=== PATIENT | male | born 1945 | race Caucasian/White ===

== ENCOUNTER 2020-12-13 09:47 | Outpatient (REF) | payer MEDICARE, SELFPAY ==
[2020-12-13 12:50] LABS: Alanine Aminotransferase 20 U/L (0-40); Anion Gap 13 (12-20); Aspartate Amino Transferase 20 U/L (5-37); Blood Urea Nitrogen 20 mg/dL (9-16); Calcium 9.2 mg/dL (8.4-10.2); Carbon Dioxide 23 mmol/L (22-29); Chloride 106 mmol/L (96-108); Cholesterol 179 mg/dL; Estimated Glomerular Filt Rate > 60; Glucose Fasting 96 mg/dL (60-99); HDL Cholesterol 51 mg/dL; LDL Cholesterol Calculated 109 mg/dl; Potassium 4.3 mmol/L (3.3-5.1); Sodium 138 mmol/L (135-145); Triglycerides 98 mg/dL
[2020-12-13 14:01] LABS: PSA,Total (Free>4and<10) 1.44 ng/mL (0.00-4.00)
== END 2020-12-13 09:48 | disposition home or self-care (01) ==
LOC: HO.HMGCLDS 09:47
PROVIDERS: PCP Internal Medicine; Visit Provider Internal Medicine
DX: Z00.00 Encounter for general adult medical examination without abnormal findings (principal); Z12.5 Encounter for screening for malignant neoplasm of prostate; I10 Essential (primary) hypertension
CPT/HCPCS: 36415; 80048; 80061; 84153; 84450; 84460

== ENCOUNTER 2021-04-03 11:22 | Outpatient (REF) | payer MEDICARE, SELFPAY ==
--- NOTE | ~2021-04-03 | XR_ITS ---
EXAMINATION: XR HAND, RIGHT CLINICAL INFORMATION: Synovitis and tenosynovitis COMPARISON: None TECHNIQUE: PA, lateral, and oblique views of the right hand. FINDINGS: Bone alignment is normal. No acute fracture or dislocation is seen. There is arthritis at the IP joints, radiocarpal and distal radial ulnar joints. There is a soft tissue calcification adjacent to the radial or lateral aspect of the fifth MCP joint and dorsal DIP joint of the third finger. Soft tissues are otherwise unremarkable. XR/XR hand RT min 3V IMPRESSION: Degenerative changes at the IP joint and wrist..
== END 2021-04-03 11:23 | disposition home or self-care (01) ==
LOC: HO.HMGCX 11:22
PROVIDERS: PCP Internal Medicine; Visit Provider Physician Assistant
DX: M65.9 Synovitis and tenosynovitis, unspecified (principal)
CPT/HCPCS: 73130

== ENCOUNTER → 2021-05-02 10:06 | Outpatient (BNVA) | payer MEDICARE, SELFPAY | PROVIDERS: PCP Internal Medicine; Visit Provider Orthopaedic Surgery | DX: M72.0 Palmar fascial fibromatosis [Dupuytren] (principal); M77.8 Other enthesopathies, not elsewhere classified; M25.641 Stiffness of right hand, not elsewhere classified | CPT/HCPCS: 99202 ==

== ENCOUNTER 2021-12-14 10:27 | Outpatient (REF) | payer MEDICARE, SELFPAY ==
--- NOTE | ~2021-12-14 | XR_ITS ---
EXAMINATION: XR KNEE AP STANDING CLINICAL INFORMATION: Right knee pain. COMPARISON: None TECHNIQUE: AP bilateral standing knees with bilateral lateral views which are weightbearing. FINDINGS: AP and lateral views of the right knee do not demonstrate any evidence of acute fracture or dislocation. Joint spaces appear to be maintained. No effusion is appreciated. There is degenerative change at the patellofemoral joint with patella spurring. There is mild marginal spurring involving the medial joint space compartment. AP and lateral views of the left knee demonstrates mild marginal spurring about the medial joint space. There is patellofemoral degenerative change with marginal spurring. There is a left knee effusion. XR/XR knee standing BI IMPRESSION: 1. Bilateral patellofemoral joint degenerative change. 2. Left knee effusion.
== END 2021-12-14 10:28 | disposition home or self-care (01) ==
LOC: HO.HMGCX 10:27
PROVIDERS: PCP Internal Medicine; Visit Provider Internal Medicine
DX: M25.561 Pain in right knee (principal); M25.562 Pain in left knee
CPT/HCPCS: 73565

== ENCOUNTER 2021-12-15 06:29 | Outpatient (REF) | payer MEDICARE, SELFPAY ==
[2021-12-15 12:18] LABS: Alanine Aminotransferase 21 U/L (0-40); Anion Gap 14 (12-20); Aspartate Amino Transferase 20 U/L (5-37); Blood Urea Nitrogen 22 mg/dL (9-16); Calcium 8.7 mg/dL (8.4-10.2); Carbon Dioxide 25 mmol/L (22-29); Chloride 106 mmol/L (96-108); Cholesterol 172 mg/dL; Estimated Glomerular Filt Rate > 60; Glucose Fasting 100 mg/dL (60-99); HDL Cholesterol 50 mg/dL; LDL Cholesterol Calculated 103 mg/dl; PSA,Total (Free>4and<10) 1.44 ng/mL (0.00-4.00); Potassium 4.3 mmol/L (3.3-5.1); Sodium 141 mmol/L (135-145); Triglycerides 97 mg/dL
== END 2021-12-15 06:30 | disposition home or self-care (01) ==
LOC: HO.HMGCLDS 06:29
PROVIDERS: PCP Internal Medicine; Visit Provider Internal Medicine
DX: Z00.01 Encounter for general adult medical examination with abnormal findings (principal); Z12.5 Encounter for screening for malignant neoplasm of prostate; R97.20 Elevated prostate specific antigen [PSA]
CPT/HCPCS: 36415; 80048; 80061; 84153; 84450; 84460

== ENCOUNTER 2022-01-12 08:21 | Outpatient (REF) | payer MEDICARE, SELFPAY ==
--- NOTE | ~2022-01-12 | XR_ITS ---
EXAMINATION: XR BILATERAL KNEE CLINICAL INFORMATION: Pain COMPARISON: None TECHNIQUE: New Point view of each knee. FINDINGS: RIGHT KNEE: There is moderate loss of patellofemoral compartment joint space with lateral patellar spurring. No bony erosive changes or loose body seen. LEFT KNEE: The patellofemoral compartment joint space is maintained with small periarticular spurring along the lateral patella. No bony erosive changes or loose body seen. XR/XR knee LT 1V IMPRESSION: 1. Moderate patellofemoral compartment arthritic changes with moderate lateral patellar spurring right knee. 2. Minimal lateral spurring of the patella left knee with no loss of joint space or erosive changes.
--- NOTE | ~2022-01-12 | XR_ITS ---
EXAMINATION: XR BILATERAL KNEE CLINICAL INFORMATION: Pain COMPARISON: None TECHNIQUE: Gowrie view of each knee. FINDINGS: RIGHT KNEE: There is moderate loss of patellofemoral compartment joint space with lateral patellar spurring. No bony erosive changes or loose body seen. LEFT KNEE: The patellofemoral compartment joint space is maintained with small periarticular spurring along the lateral patella. No bony erosive changes or loose body seen. XR/XR knee RT 1V IMPRESSION: 1. Moderate patellofemoral compartment arthritic changes with moderate lateral patellar spurring right knee. 2. Minimal lateral spurring of the patella left knee with no loss of joint space or erosive changes.
== END 2022-01-12 08:22 | disposition home or self-care (01) ==
LOC: HO.HOSX 08:21
PROVIDERS: Visit Provider Physician Assistant
DX: M22.2X1 Patellofemoral disorders, right knee (principal); M22.2X2 Patellofemoral disorders, left knee
CPT/HCPCS: 20610; 73560; 99212; J1020

== ENCOUNTER 2022-02-16 08:30 | Outpatient (RCR) | payer MEDICARE, SELFPAY | END 2022-03-21 15:42 | disposition home or self-care (01) | LOC: HO.OT 08:30 | PROVIDERS: PCP Internal Medicine; Visit Provider Internal Medicine | DX: M25.641 Stiffness of right hand, not elsewhere classified (principal) | CPT/HCPCS: 97035; 97110; 97140; 97166; 97530 ==

== ENCOUNTER → 2022-04-18 08:02 | Outpatient (BNVA) | payer MEDICARE, SELFPAY | PROVIDERS: PCP Internal Medicine; Visit Provider Physician Assistant | DX: M17.10 Unilateral primary osteoarthritis, unspecified knee (principal) | CPT/HCPCS: 99212 ==

== ENCOUNTER 2023-08-29 14:01 | Outpatient (AMB) | payer MEDICARE, SELFPAY ==
--- NOTE | 2023-08-29 14:20 | A.OFFPC_ITS ---
Vital Signs 08/29/23 14:30 Height 5 ft 5 in Weight 196 lb BMI 32.6 BP 130/72 Blood Pressure Location Rt brachial Position Sitting Pulse 64 Pulse Source Pulse Oximeter Pulse Oximetry (%) 96 Oxygen Delivery Method Room Air Intake Visit Reasons: PE Intake Note: Pt is here today for his PE: Last colonoscopy 10 yrs ago [facility] Allergies tomatoes Allergy (Unknown, Uncoded 08/29/23 15:06) stomach upset caffeine Adverse Reaction (Unknown, Uncoded 08/29/23 15:06) joint pain pineapple Adverse Reaction (Unknown, Uncoded 08/29/23 15:06) rash Medication List - Last Reconciled 08/29/23 by Rosy Ulloa MD multivitamin 1 tab PO DAILY Tobacco use date assessed: 12/14/21 Fall risk assessment: 2 + Falls in past year Last assessed Fall Risk: 08/29/23 Dental Screening Dental Screen Date: 08/29/23 Did you have a dental visit in the last 12 months?: Yes Did you have a dental problem in the last 6 months where you did not have access to dental care?: Yes Was dental information given to patient?: Patient has dentist HPI PE HPI Details 77-year-old male here today for physical exam. Currently not taking any medications at present except for multivitamins. Has had a colonoscopy more than 10 years ago at [facility],, does not want to get further screenings. Has had COVID vaccines in the past but no updated booster shot. Up-to-date with his yearly flu shots, pneumonia vaccine, Shingrix vaccine Is also complaining here today of pain on anterior aspect of right shoulder joint which has been present now for the last several weeks no history of trauma, no heavy lifting. Has been taking [id number] Tylenol which affords only temporary relief, requesting referral back to see [facility] for further evaluation management, declines physical therapy. COUNTS INCLUDE 234 BEDS AT THE [facility] Medical History (Updated 08/29/23 @ 15:26 by Rosy Ulloa MD) Dupuytren's contracture of right hand Right shoulder pain Annual visit for general adult medical examination with abnormal findings Patellofemoral arthralgia of both knees Osteoarthritis, knee Hx of hiatal hernia Surgical History (Updated 08/29/23 @ 15:16 by Rosy Ulloa MD) History of rotator cuff surgery Hx of cataract surgery H/O knee surgery Family History Brother Mental health disorder Social History Housing: House Patient Tobacco Use Status: Never used Tobacco e-Cigarette/Vaping Use: Never Used Second Hand Smoke Exposure: No service: No Current occupational status: retired Cognitive needs: No Hearing needs: No Vision needs: Yes Questionnaire PHQ-9 Over the last 2 weeks, how often have you been bothered by any of the following problems? 1. Little interest or pleasure in doing things: not at all 2. Feeling down, depressed, or hopeless: not at all 3. Trouble falling or staying asleep, or sleeping too much: not at all 4. Feeling tired or having little energy: not at all 5. Poor appetite or overeating: not at all 6. Feeling bad about yourself - or that you are a failure or have let yourself or your family down: not at all 7. Trouble concentrating on things, such as reading the newspaper or watching television: not at all 8. Moving or speaking so slowly that other people could have noticed. Or the opposite - being so fidgety or restless that you have been moving around a lot more than usual: not at all 9. Thoughts that you would be better off or of hurting yourself in some way: not at all Total score: 0 Depression Screening Interpretation: Negative Depression Screening Done: Yes 77468 - PHQ-9 Billing: Yes Source: Developed by Drs. Javan Patel, Marquita Torres, Jewel Wood and colleagues, with an educational liza from [employer]. Thrive Questionnaire Date Thrive assessed: 08/29/23 I am a: Patient What is your living situation today?: I have a steady place to live Within the past 12 months, did the food you bought not last and you didn't have the money to get more?: Never true Within the past 12 months, did you worry whether your food would run out before you got money to buy more?: Never true Do you have trouble paying for medicines?: No Do you have trouble getting transportation to medical appointments?: No Do you have trouble paying your heating and electricity bill?: No Do you have trouble taking care of your child, family member or friend?: No Do you have trouble with day-to-day activities such as bathing, preparing meals, shopping, managing finances, etc.?: No Are you currently unemployed and looking for a job?: No Are you interested in more education?: No THRIVE Score: 0 AUDIT C Alcohol Use Questionnaire (AUDIT-C) 1. How often do you have a drink containing alcohol?: 4 or more times a week 2. How many drinks containing alcohol do you have on a typical day when you are drinking?: 1 or 2 3. How often do you have six or more drinks on one occasion?: Never Total Score: 4 KLAUDIA-7 AMB Questionnaire KLAUDIA-7 Date KLAUDIA - 7 assessed: 08/29/23 Feeling nervous, anxious, or on edge: 0 = Not at all Not being able to stop or control worryin = Not at all Worrying too much about different things: 0 = Not at all Trouble relaxin = Not at all Being so restless that it is hard to sit still: 0 = Not at all Becoming easily annoyed or irritable: 0 = Not at all Feeling afraid as if something awful might happen: 0 = Not at all Total KLAUDIA-7 score (0-4 normal; 5-9 mild; 10-14 moderate; 15-21 severe): 0 Source: Developed by Drs. Javan Patel, Marquita Torres, Jewel Wood and colleagues, with an educational liza from [employer]. KLAUDIA-7 Assessment Billing KLAUDIA-7 Assessment Tool: KLAUDIA-7 Assessment 86409 Review of Systems Const Reports as per HPI and Reports no additional complaints Eyes Details: c/o double vision, sees [facility] Reports no additional complaints and Reports Normal hearing present Card Reports no additional complaints Resp Reports no additional complaints GI Reports no additional complaints Reports no additional complaints Musc Reports as per HPI, Denies joint swelling and Reports limited range of motion (Right shoulder) Skin/Breast Denies lesions, Denies rash, Denies skin pain and Denies skin swelling Neuro Reports no additional complaints, Reports Normal hearing present and Denies Sensory deficit (Neuro) Psych Reports no additional complaints Endo Reports no additional complaints Spencer/Lymph Reports no additional complaints Aller/Immun Reports no additional complaints Physical exam (Primary Care) Vital Signs: Last Vital Signs Pulse 64 08/29/23 14:30 BP 130/72 08/29/23 14:30 Pulse Ox 96 08/29/23 14:30 Oxygen Delivery Method Room Air 08/29/23 14:30 BMI result Body Mass Index 32.6 BMI Assessment/Plan discussion: High BMI High, discussed plan: lifestyle, weight reduction, dietary and physical activity Tobacco/Smoking Status: Tobacco use Status Tobacco use date assessed 12/14/21 08/29/23 14:21 Patient Tobacco Use Status Never used Tobacco 08/29/23 14:21 e-Cigarette/Vaping Use Never Used 08/29/23 14:21 PHQ-9: PHQ-9 Score PHQ-9: Total score 0 08/29/23 15:30 Depression Screening Interpretation: Negative Thrive Assessment: Date of Thrive Assessment Date Thrive assessed 08/29/23 08/29/23 14:37 Advance Care Planning discussion: Completed/Scanned Date of discussion: 12/14/21 Who was present: patient Time spent: 16-45 minutes Const General: cooperative, healthy appearing and comfortable Nutritional Appearance: obese Orientation/consciousness: patient oriented x3 HENMT Ears: hearing grossly normal bilaterally, external ears normal and TM's normal b ilaterally General nose exam: Normal external nose present and Normal nares present Face and sinus: Yes sinuses nontender and Yes face symmetric Mouth: Normal oral and palatal mucosa present and moist mucous membranes Eyes Other: Wears bifocal lenses General: appearance normal, both eyes and all related structures Neck Neck: Yes full ROM, Yes no lymphadenopathy and Yes supple Thyroid: Thyroid normal Chest Chest palpation & inspection: normal inspection of the chest Resp Effort & Inspection: normal respiratory effort and able to speak in complete sentences Auscultation: clear to auscultation bilaterally Cardio Other: S1 S2 present , regular rate and rhythm Bruits: no abdominal aortic bruits GI Palpation (GI): No Abdominal aortic bruit present, Soft to palpation, nontender, no guarding and no masses Auscultation: normal bowel sounds General: Yes no CVA tenderness Penis: normal penis Testes: no testicular mass Back/Spine/Pelvis Back: no CVA tenderness and No back tenderness Skin General skin exam: no rashes or lesions noted Neuro General: patient oriented x3, gait normal, moves all extremities and no focal motor deficits Cranial nerves: Yes Normal hearing present Sensory Exam: No Sensory deficit (Neuro) Extrem Other: Crepitations noted in both knees, pain on abduction of right arm more than 90 degrees tenderness on palpation over right AC joint General: Yes no joint enlargement, Yes no pedal edema, Yes no calf tenderness and Yes normal gait Psych Appearance: grossly normal Mental Status: mental status grossly normal Speech and movement: Normal speech and movement present Affect: normal affect Attitude: cooperative Thought process: Normal thought process present Assessment and Plan Assessment & Plan (1) Annual visit for general adult medical examination with abnormal findings: Code(s): Z00.01 - Encounter for general adult medical examination with abnormal findings Plan: Will check appropriate labs. Recommended dental visit every 6 months and regular eye exams, sees [facility], up-to-date with his eye exam Take adequate calcium in diet and vitamin-D 3 at 2000 IU per cap once a day, in addition to weight-bearing exercises to help maintain good muscle tone and weight control. Instructed to do self-testicular exam to check for any mass. Up-to-date with his vaccines. Does not want to get further colonoscopy screening (2) Right shoulder pain: Code(s): M25.511 - Pain in right shoulder Qualifiers: Chronicity: acute Qualified Code(s): M25.511 - Pain in right shoulder Plan: Referral to orthopedics at [facility], per patient request ,made Orders: Orders Basic Metabolic Panel Fasting 08/30/23 Z00. - Encounter for general adult medical examination with abnormal findings Alanine Aminotransferase 08/30/23 Z. - Encounter for general adult medical examination with abnormal findings Aspartate Amino Transferase 08/30/23 Z. - Encounter for general adult medical examination with abnormal findings Vitamin D 25-OH Total 08/30/23 Z. - Encounter for general adult medical examination with abnormal findings PSA,Total (Free>4and<10) 08/30/23 Z. - Encounter for general adult medical examination with abnormal findings, Z12.5 - Encounter for screening for malignant neoplasm of prostate Lipid Panel 08/30/23 Z. - Encounter for general adult medical examination with abnormal findings Referrals Orthopedics Referral M25.511 - Pain in right shoulder, Z98.890 - Other specif ied postprocedural states Coding Level of Care Code Est Pt Prev Care >65y(53544) Diagnoses Annual visit for general adult medical examination with abnormal findings Z00.01 Acute pain of right shoulder M25.511 Chronicity: acute Additional Codes KLAUDIA-7 Assessment Billing - KLAUDIA-7 Assessment Tool: KLAUDIA-7 Assessment 77462 ([id number]) Vital Signs *Quality* - Advance Care Planning discussion: Completed/Scanned ([id number]) Vital Signs *Quality* - Time spent: 16-45 minutes ([id number])
[2023-08-29 14:30] VITALS: BP 130/72; PULSE 64; O2SAT 96; BMI 32.6
== END 2023-08-29 15:25 | disposition home or self-care (01) ==
PROVIDERS: PCP Internal Medicine; Visit Provider Internal Medicine
DX: Z00.00 Encounter for general adult medical examination without abnormal findings (principal); M25.511 Pain in right shoulder
CPT/HCPCS: 1123F; 99397; 99497

== ENCOUNTER 2023-08-30 06:43 | Outpatient (REF) | payer MEDICARE, SELFPAY ==
[2023-08-30 11:08] LABS: Alanine Aminotransferase 20 U/L (0-40); Anion Gap 13 (12-20); Aspartate Amino Transferase 21 U/L (5-37); Blood Urea Nitrogen 20 mg/dL (9-16); Calcium 8.9 mg/dL (8.4-10.2); Carbon Dioxide 24 mmol/L (22-29); Chloride 106 mmol/L (96-108); Cholesterol 172 mg/dL (<200); Estimated Glomerular Filt Rate > 60; Glucose Fasting 101 mg/dL (60-99); HDL Cholesterol 49 mg/dL (>40); LDL Cholesterol Calculated 101 mg/dL (<100); Potassium 4.1 mmol/L (3.3-5.1); Sodium 139 mmol/L (135-145); Triglycerides 111 mg/dL (<150)
[2023-08-30 11:27] LABS: Vitamin D 25-OH Total 44.8 ng/mL (>30)
[2023-08-30 11:30] LABS: PSA,Total (Free>4and<10) 1.46 ng/mL (0.00-4.00)
== END 2023-08-30 06:44 | disposition home or self-care (01) ==
LOC: HO.HMGCLDS 06:43
PROVIDERS: PCP Internal Medicine; Visit Provider Internal Medicine
DX: Z00.01 Encounter for general adult medical examination with abnormal findings (principal); Z12.5 Encounter for screening for malignant neoplasm of prostate
CPT/HCPCS: 36415; 80048; 80061; 82306; 84153; 84450; 84460

== ENCOUNTER 2023-09-27 07:22 | Outpatient (REF) | payer MEDICARE, SELFPAY ==
--- NOTE | ~2023-09-27 | XR_ITS ---
EXAMINATION: XR SHOULDER, RIGHT CLINICAL INFORMATION: Pain. COMPARISON: None available. TECHNIQUE: AP external rotation, Grashey, scapular Y, and axillary views of the right shoulder. FINDINGS: There is bony demineralization. The glenohumeral joint is intact, and there is superior subluxation of the right humeral head relative to the glenoid, with narrowing of the rotator cuff interval. The acromioclavicular and coracoclavicular intervals are normal. There is mild osteoarthritic change of the glenohumeral and acromioclavicular joints. No fracture or dislocation is seen. There is no soft tissue calcification. There are orthopedic anchors applied to the acromion process and the right humeral head, which shows cortical irregularity. There is no right pneumothorax. XR/XR shoulder RT min 2V IMPRESSION: 1. There is mild osteoarthritic change of the right glenohumeral and acromioclavicular joints. 2. The right glenohumeral joint is subluxed, and there is narrowing of the right rotator cuff interval, suggesting rotator cuff pathology. 3. There are surgical anchors applied to the right humeral head and the acromion process; please correlate with the patient's Past Surgical History.
== END 2023-09-27 07:23 | disposition home or self-care (01) ==
LOC: HO.HOSX 07:22
PROVIDERS: Visit Provider Physician Assistant
DX: M19.011 Primary osteoarthritis, right shoulder (principal)
CPT/HCPCS: 73030; 99212

== ENCOUNTER 2023-09-27 07:41 | Outpatient (AMB) | payer MEDICARE, SELFPAY ==
--- NOTE | 2023-09-27 07:57 | MHC.OFFVIS ---
Vital Signs 09/27/23 07:58 Height 5 ft 5 in Weight 190 lb BMI 31.6 Handedness Right Intake Visit Reasons: new prob RT shoulder pain Intake Note: Rahul is a 77 year old right hand dominant male who presents today for a new problem visit with complaints of right shoulder pain. Patient reports about 15 years of ongoing right shoulder pain.He states he had two operations in the past in the right shoulder at [facility]. He expresses he is experiencing weakness, is unable to lift right arm above his head, and heavy objects without discomfort. Denies recent injury, numbness, and tingling. Pt has no history of injections or PT and does not take OTC medication for pain. Allergies caffeine Adverse Reaction (Unknown, Verified 09/27/23 08:09) Joint Pain pineapple Adverse Reaction (Unknown, Verified 09/27/23 08:09) Stomach Upset tomato Adverse Reaction (Unknown, Verified 09/27/23 08:09) Stomach Upset tomatoes Allergy (Unknown, Uncoded 08/29/23 15:06) stomach upset caffeine Adverse Reaction (Unknown, Uncoded 08/29/23 15:06) joint pain pineapple Adverse Reaction (Unknown, Uncoded 08/29/23 15:06) rash HPI HPI new prob RT shoulder pain : Details: 77-year-old right hand dominant male who presents to the office today for an evaluation of right shoulder pain for 15 years. No recent injury. He currently states he has weakness and pain in his right shoulder that is aggravated with overhead lifting and at night. He is unable to lift heavy objects from his right arm without discomfort. He denies any numbness or tingling and has not had any injections, physical therapy, or any OTC medications use in the past. He had a RTC repair approx 12 years ago with [facility]. He has a history of prediabetes. REPLACED BY [facility] Medical History Dupuytren's contracture of right hand Right shoulder pain Annual visit for general adult medical examination with abnormal findings Patellofemoral arthralgia of both knees Osteoarthritis, knee Hx of hiatal hernia Surgical History (Updated 08/29/23 @ 15:16 by Rosy Ulloa MD) History of rotator cuff surgery Hx of cataract surgery H/O knee surgery Family History Brother Mental health disorder Social History (Updated 09/27/23 @ 08:00 by Lea Nunes) Housing: House Patient Tobacco Use Status: Never used Tobacco e-Cigarette/Vaping Use: Never Used Second Hand Smoke Exposure: No service: No Current occupational status: retired Current occupation: right hand dominant Cognitive needs: No Hearing needs: No Vision needs: Yes Review of Systems Const All systems reviewed & are unremarkable except as noted in HPI and below Physical Exam Vital Signs: BMI result Body Mass Index 31.6 Const General: cooperative and no acute distress Orientation/consciousness: patient oriented x3 Resp Effort & Inspection: normal respiratory effort and able to speak in complete sentences Cardio Peripheral pulses: Peripheral pulses 2+ throughout Neuro General: patient oriented x3 Extrem Other: Right shoulder: Normal to inspection. Tenderness over the bicipital groove and along the deltoid region of the shoulder. Forward flexion to 175, external rotation to 90, internal rotation to S1. 5/5 RTC strength. Negative Friedman and cross body abduction. NVI. Results Reviewed Results Reviewed: Xrays were obtained in the office today and personally reviewed by me of the right shoulder show ac joint oa with rtc anchors and one rtc anchor appears to be displaced. Assessment & Plan Assessment & Plan (1) History of rotator cuff surgery: Code(s): Z98.890 - Other specified postprocedural states Category: Surgical (2) Osteoarthritis of right acromioclavicular joint: Code(s): M19.011 - Primary osteoarthritis, right shoulder Category: Medical Plan We discussed the extent of his findings on exam and x-rays. It does appear that one of the RTC anchor has come out of the humeral head which may signify partial if not full RTC tear with retraction or atrophy. An MRI of the right shoulder was also ordered to further evaluate the extent of his injury and possible treatment options which would require surgical intervention given his need to use his shoulder and strength at this point of his life, he may need full function of his shoulder. He states he does not perform a lot of overhead reaching that I feel is reasonable where he could have chances of successful surgical intervention. He will see us back once the scan is complete with Dr. Nguyễn to discuss the results which he is content with. Orders: Orders XR shoulder RT min 2V Today Adriana Santiago PA-C M25.519 - Pain in unspecified shoulder XR shoulder RT min 2V Today Jumana Jimenez PA-C M25.511 - Pain in right shoulder MR shoulder RT wo con Today Jumana Jimenez PA-C M77.8 - Other enthesopathies, not elsewhere classified Patient Instructions: Scribed for Jumana Jimenez PA-C, by Ramiro Luna, certified medical coding specialist, on 09/27/2023 at 8:00 AM EST.? I, Jumana Jimenez PA-C, have personally reviewed and agree with the information entered by the scribe. Coding Level of Care Code New Pt Level 3 (54679) Diagnoses History of rotator cuff surgery Z98.890 Osteoarthritis of right acromioclavicular joint M19.011
[2023-09-27 07:58] VITALS: BMI 31.6
== END 2023-09-27 08:44 | disposition home or self-care (01) ==
PROVIDERS: PCP Internal Medicine; Visit Provider Physician Assistant
DX: M17.0 Bilateral primary osteoarthritis of knee (principal)
CPT/HCPCS: 99213

== ENCOUNTER 2024-01-12 10:24 | Outpatient (REF) | payer MEDICARE, SELFPAY ==
--- NOTE | ~2024-01-12 | MR_ITS ---
EXAMINATION: MR SHOULDER WITHOUT CONTRAST, RIGHT CLINICAL INFORMATION: Right shoulder pain and swelling. Tendinitis. Prior rotator cuff tendon repair. COMPARISON: Most recent right shoulder radiographs dated 09/27/2023. TECHNIQUE: MRI of the shoulder without contrast was performed on a high-field scanner. FINDINGS: ROTATOR CUFF: Orthopedic anchors within the humeral head consistent with prior rotator cuff tendon repair. Near-complete, full-thickness tears of the supraspinatus and infraspinatus tendons with thin, irregular anterior supraspinatus and posterior infraspinatus tendon fibers remaining intact. Overall, tearing measures up to 4.5 x 5.0 cm (AP x ML) with the torn tendon fibers retracted to the glenohumeral articulation. Moderate subscapularis tendinosis. Moderate supraspinatus, infraspinatus, and teres minor muscle atrophy. BICEPS: Thickening and heterogeneity of the proximal long head biceps tendon with areas of somewhat linear fluid signal, consistent with moderate tendinosis and longitudinal partial tearing. CORACOACROMIAL ARCH: Orthopedic anchor within the lateral acromion with prominent associated artifact. Severe acromioclavicular osteoarthritis with bony remodeling. LABRUM/CAPSULE: Heterogeneity throughout the superior and inferior labrum, consistent with degeneration. Probable nondisplaced undersurface tear of the posterior labrum. Intact inferior joint capsule. GLENOHUMERAL JOINT/MARROW: Chronic posterior subluxation of the humeral head with posterior glenoid full-thickness articular cartilage loss, bony remodeling, and subchondral cystic change/marrow edema. Diffuse humeral head articular cartilage thinning with areas of full-thickness loss and marginal osteophytes. Moderate joint effusion with synovitis versus debris. Debris versus loose bodies within the subcoracoid recess measuring up to 0.5 cm in greatest dimension. MR/MR shoulder RT wo con IMPRESSION: 1. Postsurgical change consistent with prior rotator cuff tendon repair. Near-complete, full-thickness tears of the supraspinatus and infraspinatus tendons with thin, irregular anterior supraspinatus and posterior infraspinatus tendon fibers remaining intact. Moderate subscapularis tendinosis. Moderate supraspinatus, infraspinatus, and teres minor muscle atrophy. 2. Moderate proximal long head biceps tendinosis with longitudinal partial tearing. 3. Severe acromioclavicular osteoarthritis with bony remodeling. 4. Diffuse labral degeneration. Probable nondisplaced undersurface tear of the posterior labrum. 5. Chronic posterior subluxation of the humeral head with severe glenohumeral osteoarthritis and bony remodeling. Moderate joint effusion with synovitis versus debris. Debris versus loose bodies within the subcoracoid recess measuring up to 0.5 cm. Electronically signed by: Wilfrido Walters MD 01/14/2024 09:06 PM EDT
== END 2024-01-12 10:25 | disposition home or self-care (01) ==
LOC: HO.MRI 10:24
PROVIDERS: PCP Internal Medicine; Visit Provider Physician Assistant
DX: M77.8 Other enthesopathies, not elsewhere classified (principal)
CPT/HCPCS: 73221

== ENCOUNTER 2024-02-05 12:34 | Outpatient (AMB) | payer MEDICARE, SELFPAY ==
[2024-02-05 12:35] VITALS: BMI 31.6
--- NOTE | 2024-02-05 12:35 | MHC.OFFVIS ---
Vital Signs 02/05/24 12:35 Height 5 ft 5 in Weight 190 lb BMI 31.6 Intake Visit Reasons: MRI Review of Right Shoulder Intake Note: Rahul is a 78 yo who presents today for a right shoulder MRI review. Patient reports no other concerns today. Allergies caffeine Adverse Reaction (Unknown, Verified 02/05/24 12:35) Joint Pain pineapple Adverse Reaction (Unknown, Verified 02/05/24 12:35) Stomach Upset tomato Adverse Reaction (Unknown, Verified 02/05/24 12:35) Stomach Upset tomatoes Allergy (Unknown, Uncoded 02/05/24 12:35) stomach upset caffeine Adverse Reaction (Unknown, Uncoded 02/05/24 12:35) joint pain pineapple Adverse Reaction (Unknown, Uncoded 02/05/24 12:35) rash HPI Comments Details: 78-year-old gentleman returns to the office today for a follow-up MRI of the right shoulder. States since his last visit he continues to have limitations with the right shoulder which includes reaching overhead or even performing activities at waist level such as eating. Of note he did have a rotator cuff repair several years ago on the right shoulder but does not recall any recent injuries. [facility] Medical History Dupuytren's contracture of right hand Right shoulder pain Annual visit for general adult medical examination with abnormal findings Patellofemoral arthralgia of both knees Osteoarthritis, knee Hx of hiatal hernia Surgical History (Updated 08/29/23 @ 15:16 by Rosy Ulloa MD) History of rotator cuff surgery Hx of cataract surgery H/O knee surgery Family History Brother Mental health disorder Social History (Updated 09/27/23 @ 08:00 by Lea Nunes [facility]) Housing: House Patient Tobacco Use Status: Never used Tobacco e-Cigarette/Vaping Use: Never Used Second Hand Smoke Exposure: No service: No Current occupational status: retired Current occupation: right hand dominant Cognitive needs: No Hearing needs: No Vision needs: Yes Review of Systems Const All systems reviewed & are unremarkable except as noted in HPI and below Physical Exam Vital Signs: BMI result Body Mass Index 31.6 Const General: cooperative and no acute distress Orientation/consciousness: patient oriented x3 Resp Effort & Inspection: normal respiratory effort and able to speak in complete sentences Cardio Peripheral pulses: Peripheral pulses 2+ throughout Neuro General: patient oriented x3 Extrem Other: Right shoulder: Normal to inspection. Tenderness over the bicipital groove and along the deltoid region of the shoulder. Forward flexion to 175, external rotation to 90, internal rotation to S1. 5/5 RTC strength. Negative Friedman and cross body abduction. NVI. Results Reviewed Results Reviewed: IMPRESSION: 1. Postsurgical change consistent with prior rotator cuff tendon repair. Near-complete, full-thickness tears of the supraspinatus and infraspinatus tendons with thin, irregular anterior supraspinatus and posterior infraspinatus tendon fibers remaining intact. Moderate subscapularis tendinosis. Moderate supraspinatus, infraspinatus, and teres minor muscle atrophy. 2. Moderate proximal long head biceps tendinosis with longitudinal partial tearing. 3. Severe acromioclavicular osteoarthritis with bony remodeling. 4. Diffuse labral degeneration. Probable nondisplaced undersurface tear of the posterior labrum. 5. Chronic posterior subluxation of the humeral head with severe glenohumeral osteoarthritis and bony remodeling. Moderate joint effusion with synovitis versus debris. Debris versus loose bodies within the subcoracoid recess measuring up to 0.5 cm. Assessment & Plan Assessment & Plan (1) Osteoarthritis of right acromioclavicular joint: Code(s): M19.011 - Primary osteoarthritis, right shoulder Category: Medical (2) Right rotator cuff tear: Code(s): M75.101 - Unspecified rotator cuff tear or rupture of right shoulder, not specified as traumatic Category: Medical Plan Given the findings on the MRI which are significant for a rotator cuff tear along with osteoarthritis and his limitations with daily activities I recommend he follow up with Dr. Nguyễn to determine the next step in his treatment whether this be revision rotator cuff repair versus reverse total shoulder arthroplasty. The patient is content with this plan as he is still active in his daily life and would like to restore his function in the right arm. Coding Level of Care Code Est Pt Level 3 (03152) Complex EM visit Add On G2211 Diagnoses Osteoarthritis of right acromioclavicular joint M19.011 Right rotator cuff tear M75.101
== END 2024-02-05 12:51 | disposition home or self-care (01) ==
PROVIDERS: PCP Internal Medicine; Visit Provider Physician Assistant
DX: M19.011 Primary osteoarthritis, right shoulder (principal); M75.101 Unspecified rotator cuff tear or rupture of right shoulder, not specified as traumatic
CPT/HCPCS: 99213; G2211

== ENCOUNTER → 2024-02-05 12:34 | Outpatient (BNVA) | payer MEDICARE, SELFPAY | PROVIDERS: PCP Internal Medicine; Visit Provider Physician Assistant | DX: M19.011 Primary osteoarthritis, right shoulder (principal); M75.101 Unspecified rotator cuff tear or rupture of right shoulder, not specified as traumatic | CPT/HCPCS: 99212 ==

== ENCOUNTER 2024-02-06 09:16 | Outpatient (AMB) | payer MEDICARE, SELFPAY ==
--- NOTE | 2024-02-06 09:19 | MHC.OFFVIS ---
Vital Signs 02/06/24 09:20 Height 5 ft 5 in Weight 190 lb BMI 31.6 Intake Visit Reasons: OV - MRI review of Right shoulder Intake Note: Rahul is a 78 year old right hand dominant male who presents today for an MRI review of his right shoulder. Allergies caffeine Adverse Reaction (Unknown, Verified 02/05/24 12:35) Joint Pain pineapple Adverse Reaction (Unknown, Verified 02/05/24 12:35) Stomach Upset tomato Adverse Reaction (Unknown, Verified 02/05/24 12:35) Stomach Upset tomatoes Allergy (Unknown, Uncoded 02/05/24 12:35) stomach upset caffeine Adverse Reaction (Unknown, Uncoded 02/05/24 12:35) joint pain pineapple Adverse Reaction (Unknown, Uncoded 02/05/24 12:35) rash HPI HPI OV - MRI review of Right shoulder: Details: Rahul is a 78 year old right hand dominant male who presents today for an MRI review of his right shoulder. He has difficulty with daily activities including eating and sleeping. He has a hard time getting his hand to his mouth. He has had multiple surgeries. He is right-hand dominant. He has not had steroid injections recently. He states he is ?prediabetic? [facility] Medical History Dupuytren's contracture of right hand Right shoulder pain Annual visit for general adult medical examination with abnormal findings Patellofemoral arthralgia of both knees Osteoarthritis, knee Hx of hiatal hernia Surgical History (Updated 08/29/23 @ 15:16 by Rosy Ulloa MD) History of rotator cuff surgery Hx of cataract surgery H/O knee surgery Family History Brother Mental health disorder Social History (Updated 09/27/23 @ 08:00 by Lea Nunes [facility]) Housing: House Patient Tobacco Use Status: Never used Tobacco e-Cigarette/Vaping Use: Never Used Second Hand Smoke Exposure: No service: No Current occupational status: retired Current occupation: right hand dominant Cognitive needs: No Hearing needs: No Vision needs: Yes Physical Exam Vital Signs: BMI result Body Mass Index 31.6 Extrem Other: Right shoulder with positive drop-arm test. 4- out of 5 strength empty can testing passively I can externally rotate him to 30 degrees and abduct him to 90. Office Procedures Joint Injection/Aspiration Joint Injection/Aspiration Details: Injected 1 mL of Decadron and 3 mL 1% lidocaine and 3 mL of 0.25% Marcaine. Site was prepped using aseptic technique. Patient tolerated the procedure well. Primary Site: right shoulder Approach Used: posterolateral Coding - Large joint Procedure code (CPT) selection complete Results Reviewed Results Reviewed: I personally reviewed the MR images. IMPRESSION: 1. Postsurgical change consistent with prior rotator cuff tendon repair. Near-complete, full-thickness tears of the supraspinatus and infraspinatus tendons with thin, irregular anterior supraspinatus and posterior infraspinatus tendon fibers remaining intact. Moderate subscapularis tendinosis. Moderate supraspinatus, infraspinatus, and teres minor muscle atrophy. 2. Moderate proximal long head biceps tendinosis with longitudinal partial tearing. 3. Severe acromioclavicular osteoarthritis with bony remodeling. 4. Diffuse labral degeneration. Probable nondisplaced undersurface tear of the posterior labrum. 5. Chronic posterior subluxation of the humeral head with severe glenohumeral osteoarthritis and bony remodeling. Moderate joint effusion with synovitis versus debris. Debris versus loose bodies within the subcoracoid recess measuring up to 0.5 cm. Assessment & Plan Assessment & Plan (1) Rotator cuff arthropathy of right shoulder: Code(s): M12.811 - Other specific arthropathies, not elsewhere classified, right shoulder Category: Medical Plan: This is a 70-year-old gentleman with rotator cuff arthropathy of the right shoulder. He is quite symptomatic. I discussed treatment options including injections and surgery. I explained the details of surgery including the risks benefits alternatives. He will think about it and at this time would like to proceed forward with a cortisone injection. This was done without complication and he can follow up to see me in 3 months. Coding Level of Care Code Est Pt Level 4 (17351) Diagnoses Rotator cuff arthropathy of right shoulder M12.811 CPT Codes Coding - Large joint: 52145 - Large joint ([id number])
[2024-02-06 09:20] VITALS: BMI 31.6
== END 2024-02-06 09:51 | disposition home or self-care (01) ==
PROVIDERS: PCP Internal Medicine; Visit Provider Orthopaedic Surgery
DX: M12.811 Other specific arthropathies, not elsewhere classified, right shoulder (principal)
CPT/HCPCS: 20610; 99214

== ENCOUNTER → 2024-02-06 09:16 | Outpatient (BNVA) | payer MEDICARE, SELFPAY | PROVIDERS: PCP Internal Medicine; Visit Provider Orthopaedic Surgery | DX: M12.811 Other specific arthropathies, not elsewhere classified, right shoulder (principal) | CPT/HCPCS: 20610; 99212; J0665; J1100; J2003 ==

== ENCOUNTER 2024-03-30 08:09 | Outpatient (AMB) | payer MEDICARE, SELFPAY ==
--- NOTE | 2024-03-30 08:10 | MHC.OFFVIS ---
Vital Signs 03/30/24 08:11 Height 5 ft 5 in Weight 190 lb BMI 31.6 Intake Visit Reasons: OV-Right shoulder pain-Discuss surgery Intake Note: Rahul is a 78 year old right hand dominant male who presents today for a follow up of his Right Shoulder RTC Arthropathy. Last Injection administered on 02/06/24. Patient reports that this injection was not particularly helpful and he would like to move forward with previously discussed surgical intervention. Allergies caffeine Adverse Reaction (Unknown, Verified 03/30/24 08:11) Joint Pain pineapple Adverse Reaction (Unknown, Verified 03/30/24 08:11) Stomach Upset tomato Adverse Reaction (Unknown, Verified 03/30/24 08:11) Stomach Upset tomatoes Allergy (Unknown, Uncoded 03/30/24 08:11) stomach upset caffeine Adverse Reaction (Unknown, Uncoded 03/30/24 08:11) joint pain pineapple Adverse Reaction (Unknown, Uncoded 03/30/24 08:11) rash HPI HPI OV-Right shoulder pain-Discuss surgery: Details: Rahul is a 78 year old right hand dominant male who presents today for a follow up of his Right Shoulder RTC Arthropathy. Last Injection administered on 02/06/24. Patient reports that this injection was not particularly helpful and he would like to move forward with previously discussed surgical intervention. He has been unable to abduct his arm for years. He had rotator cuff repair maybe a does not years ago and has had pain now for years. He he he found the injection on helpful. He feels that he has quality of life is diminished because he can not use his right arm. He can not even lift coffee mug her put dishes away. He is interested in discussing more permanent solutions. [facility] Medical History Dupuytren's contracture of right hand Right shoulder pain Annual visit for general adult medical examination with abnormal findings Patellofemoral arthralgia of both knees Osteoarthritis, knee Hx of hiatal hernia Surgical History (Updated 08/29/23 @ 15:16 by Rosy Ulloa MD) History of rotator cuff surgery Hx of cataract surgery H/O knee surgery Family History Brother Mental health disorder Social History (Updated 09/27/23 @ 08:00 by SARAH Robles) Housing: House Patient Tobacco Use Status: Never used Tobacco e-Cigarette/Vaping Use: Never Used Second Hand Smoke Exposure: No service: No Current occupational status: retired Current occupation: right hand dominant Cognitive needs: No Hearing needs: No Vision needs: Yes Physical Exam Vital Signs: BMI result Body Mass Index 31.6 Extrem Other: Deltoid intact and firing. Passively I can abduct him to 90 degrees and forward flex him to 130. Actively he has ski scapular recruitment with abduction past 50 degrees and can just get his hand to the back of his head with discomfort. Results Reviewed Results Reviewed: I personally reviewed the MR images. IMPRESSION: 1. Postsurgical change consistent with prior rotator cuff tendon repair. Near-complete, full-thickness tears of the supraspinatus and infraspinatus tendons with thin, irregular anterior supraspinatus and posterior infraspinatus tendon fibers remaining intact. Moderate subscapularis tendinosis. Moderate supraspinatus, infraspinatus, and teres minor muscle atrophy. 2. Moderate proximal long head biceps tendinosis with longitudinal partial tearing. 3. Severe acromioclavicular osteoarthritis with bony remodeling. 4. Diffuse labral degeneration. Probable nondisplaced undersurface tear of the posterior labrum. 5. Chronic posterior subluxation of the humeral head with severe glenohumeral osteoarthritis and bony remodeling. Moderate joint effusion with synovitis versus debris. Debris versus loose bodies within the subcoracoid recess measuring up to 0.5 cm. Assessment & Plan Assessment & Plan (1) Rotator cuff arthropathy of right shoulder: Code(s): M12.811 - Other specific arthropathies, not elsewhere classified, right shoulder Category: Medical Plan: This is an active and healthy right hand dominant 78-year-old with rotator cuff arthropathy. This is been ongoing for years and nonsurgical treatment options have failed. I recommend a reverse total shoulder arthroplasty. I explained the procedure to him. I discussed the risks, benefits and alternatives including, but not limited to, the risk of infection, fracture, dislocation, need for the surgery as well as medical complications associated with surgery in general. He understands these risks and would like to proceed forward with surgery. I will introduce him to our nurse navigator. Coding Level of Care Code Est Pt Level 4 (54352) Diagnoses Rotator cuff arthropathy of right shoulder M12.818
[2024-03-30 08:11] VITALS: BMI 31.6
== END 2024-03-30 10:42 | disposition home or self-care (01) ==
PROVIDERS: PCP Internal Medicine; Visit Provider Orthopaedic Surgery
DX: M12.811 Other specific arthropathies, not elsewhere classified, right shoulder (principal)
CPT/HCPCS: 99214

== ENCOUNTER → 2024-03-30 08:09 | Outpatient (BNVA) | payer MEDICARE, SELFPAY | PROVIDERS: PCP Internal Medicine; Visit Provider Orthopaedic Surgery | DX: M12.811 Other specific arthropathies, not elsewhere classified, right shoulder (principal) | CPT/HCPCS: 99212 ==

== ENCOUNTER 2024-04-10 08:22 | Outpatient (AMB) | payer MEDICARE, SELFPAY ==
[2024-04-10 08:36] VITALS: BP 120/70; PULSE 74; O2SAT 96; BMI 32.4
--- NOTE | 2024-04-10 08:36 | MHC.PC.OV ---
Vital Signs 04/10/24 08:36 Height 5 ft 5 in Weight 195 lb BMI 32.4 BP 120/70 Blood Pressure Location Lt brachial Position Sitting Pulse 74 Pulse Source Pulse Oximeter Pulse Oximetry (%) 96 Oxygen Delivery Method Room Air Intake Visit Reasons: Rt shoulder TSA 05/27/24 w/Dr. oJ Intake Note: Pt is here today for his pre-op for Rt shoulder TSA with Dr. Nguyễn on 05/27/24 Allergies caffeine Adverse Reaction (Unknown, Verified 04/10/24 08:56) Joint Pain pineapple Adverse Reaction (Unknown, Verified 04/10/24 08:56) Stomach Upset tomato Adverse Reaction (Unknown, Verified 04/10/24 08:56) Stomach Upset tomatoes Allergy (Unknown, Uncoded 04/10/24 08:56) stomach upset caffeine Adverse Reaction (Unknown, Uncoded 04/10/24 08:56) joint pain pineapple Adverse Reaction (Unknown, Uncoded 04/10/24 08:56) rash Medication List - Last Reconciled 04/10/24 by Rosy Ulloa MD diphenhydramine-acetaminophen 25-500 mg (Tylenol PM Extra Strength) 1 tab PO BEDTIME PRN multivitamin 1 tab PO DAILY Tobacco use date assessed: 04/10/24 Fall risk assessment: No Falls in past year Last assessed Fall Risk: 04/10/24 Dental Screening Dental Screen Date: 04/10/24 Did you have a dental visit in the last 12 months?: Yes Did you have a dental problem in the last 6 months where you did not have access to dental care?: No Was dental information given to patient?: Patient has dentist HPI Rt shoulder TSA 05/27/24 w/Dr. Jo HPI Details 78-year-old with rotator cuff arthropathy. This has been ongoing for years and nonsurgical treatment options have failed. He is now scheduled for a reverse total shoulder arthroplasty, and is here for a preoperative examination. Denies chest pain , cough , shortness of breath , lightheadedness , abdomnal pain or any episodes of abnormal bleeding reported . [facility] Medical History (Updated 04/10/24 @ 09:13 by Rosy Ulloa MD) Impaired fasting glucose Dupuytren's contracture of right hand Patellofemoral arthralgia of both knees Hx of hiatal hernia Surgical History History of rotator cuff surgery Hx of cataract surgery H/O knee surgery Family History Brother Mental health disorder Social History Housing: House Patient Tobacco Use Status: Never used Tobacco e-Cigarette/Vaping Use: Never Used Second Hand Smoke Exposure: No service: No Current occupational status: retired Current occupation: right hand dominant Cognitive needs: No Hearing needs: No Vision needs: Yes Questionnaire PHQ-9 Over the last 2 weeks, how often have you been bothered by any of the following problems? 1. Little interest or pleasure in doing things: not at all 2. Feeling down, depressed, or hopeless: not at all 3. Trouble falling or staying asleep, or sleeping too much: more than half the days 4. Feeling tired or having little energy: not at all 5. Poor appetite or overeating: not at all 6. Feeling bad about yourself - or that you are a failure or have let yourself or your family down: not at all 7. Trouble concentrating on things, such as reading the newspaper or watching television: not at all 8. Moving or speaking so slowly that other people could have noticed. Or the opposite - being so fidgety or restless that you have been moving around a lot more than usual: not at all 9. Thoughts that you would be better off or of hurting yourself in some way: not at all Total score: 2 Depression Screening Interpretation: Negative Depression Screening Done: Yes 21918 - PHQ-9 Billing: Yes Source: Developed by Drs. Javan Patel, Marquita Torres, Jewel Wood and colleagues, with an educational liza from [employer]. Thrive Questionnaire Date Thrive assessed: 08/29/23 I am a: Patient What is your living situation today?: I have a steady place to live Within the past 12 months, did the food you bought not last and you didn't have the money to get more?: Never true Within the past 12 months, did you worry whether your food would run out before you got money to buy more?: Never true Do you have trouble paying for medicines?: No Do you have trouble getting transportation to medical appointments?: No Do you have trouble paying your heating and electricity bill?: No Do you have trouble taking care of your child, family member or friend?: No Do you have trouble with day-to-day activities such as bathing, preparing meals, shopping, managing finances, etc.?: No Are you currently unemployed and looking for a job?: No Are you interested in more education?: No Please select the resources that you would like help with: None Currently or been in a relationship where the following occur: I choose not to answer THRIVE Score: 0 AUDIT C Alcohol Use Questionnaire (AUDIT-C) 1. How often do you have a drink containing alcohol?: 4 or more times a week 2. How many drinks containing alcohol do you have on a typical day when you are drinking?: 1 or 2 3. How often do you have six or more drinks on one occasion?: Never Total Score: 4 KLAUDIA-7 AMB Questionnaire KLAUDIA-7 Date KLAUDIA - 7 assessed: 08/29/23 Feeling nervous, anxious, or on edge: 0 = Not at all Not being able to stop or control worryin = Not at all Worrying too much about different things: 0 = Not at all Trouble relaxin = Not at all Being so restless that it is hard to sit still: 0 = Not at all Becoming easily annoyed or irritable: 0 = Not at all Feeling afraid as if something awful might happen: 0 = Not at all Total KLAUDIA-7 score (0-4 normal; 5-9 mild; 10-14 moderate; 15-21 severe): 0 Source: Developed by Drs. Javan Patel, Marquita Torres, Jewel Wood and colleagues, with an educational liza from [employer]. KLAUDIA-7 Assessment Billing KLAUDIA-7 Assessment Tool: KLAUDIA-7 Assessment 61804 Review of Systems Const Reports as per HPI and Reports no additional complaints Eyes Details: hx of double vision, sees [facility] ENT Reports no additional complaints and Reports Normal hearing present Card Reports no additional complaints Resp Reports no additional complaints GI Reports no additional complaints Reports no additional complaints Musc Reports as per HPI, Denies joint swelling and Reports limited range of motion (Right shoulder) Skin/Breast Denies lesions, Denies rash, Denies skin pain and Denies skin swelling Neuro Reports no additional complaints, Reports Normal hearing present and Denies Sensory deficit (Neuro) Psych Reports no additional complaints Endo Reports no additional complaints Spencer/Lymph Reports no additional complaints Aller/Immun Reports no additional complaints Physical exam (Primary Care) Vital Signs: Last Vital Signs Pulse 74 04/10/24 08:36 BP 120/70 04/10/24 08:36 Pulse Ox 96 04/10/24 08:36 Oxygen Delivery Method Room Air 04/10/24 08:36 BMI result Body Mass Index 32.4 Tobacco/Smoking Status: Tobacco use Status Tobacco use date assessed 04/10/24 04/10/24 08:45 Patient Tobacco Use Status Never used Tobacco 04/10/24 08:37 e-Cigarette/Vaping Use Never Used 04/10/24 08:37 PHQ-9: PHQ-9 Score PHQ-9: Total score 2 04/10/24 11:25 Depression Screening Interpretation: Negative Thrive Assessment: Date of Thrive Assessment Date Thrive assessed 08/29/23 04/10/24 08:37 Currently or been in a relationship where the following occur: I choose not to answer Const General: comfortable Nutritional Appearance: obese Orientation/consciousness: patient oriented x3 HENMT Ears: hearing grossly normal bilaterally, external ears normal and TM's normal bilaterally General nose exam: Normal external nose present and Normal nares present Face and sinus: Yes face symmetric Mouth: Normal oral and palatal mucosa present and moist mucous membranes Eyes Other: Wears bifocal lenses General: appearance normal, both eyes and all related structures Neck Neck: Yes full ROM, Yes no lymphadenopathy and Yes supple Thyroid: Thyroid normal Resp Effort & Inspection: normal respiratory effort and able to speak in complete sentences Auscultation: clear to auscultation bilaterally Cardio Other: S1 S2 present , regular rate and rhythm Bruits: no abdominal aortic bruits GI Palpation (GI): No Abdominal aortic bruit present, Soft to palpation, nontender, no guarding and no masses Auscultation: normal bowel sounds Back/Spine/Pelvis Back: No back tenderness Skin General skin exam: no rashes or lesions noted Neuro General: patient oriented x3, gait normal, moves all extremities and no focal motor deficits Cranial nerves: Yes Normal hearing present Sensory Exam: No Sensory deficit (Neuro) Extrem Other: pain on abduction of right arm more than 90 degrees tenderness on palpation over right AC joint General: Yes no joint enlargement, Yes no pedal edema, Yes no calf tenderness and Yes normal gait Psych Appearance: grossly normal Mental Status: mental status grossly normal Speech and movement: Normal speech and movement present Affect: normal affect Attitude: cooperative Thought process: Normal thought process present Results AMB Hemoglobin A1c AMB Hemoglobin A1c 5.2 % Last Edit by Gricelda Mendoza CMA on 04/10/24 08:54 Results Reviewed Results Reviewed: Laboratory Last Values Hgb A1c (Clinic) 5.2 % (4.0-6.0) 04/10/24 08:48 Name: Rahul Hope Age/Sex: 77/M : 1945 Unit#: [id number] Attend Dr: Rosy Ulloa MD Re08/30/23 Status: DEP REF Location: [facility] Disch: SPEC : [id number] [place]: 08/30/23 STATUS: COMP REQ : [id number] RECD: 08/30/23-[address]: Rosy Ulloa MD COMP: 08/30/23 ENTERED: 08/30/[address]: ORDERED: Met Prof Fast, AST, ALT, Lipid Panel, Vitamin D 25-OH Test Result Flag Reference Sodium 139 135-145 mmol/L Potassium 4.1 3.3-5.1 mmol/L CL 106 96-108 mmol/L CO2 24 22-29 mmol/L Gap 13 12-20 BUN 20 H 9-16 mg/dL Creat 0.74 0.5-1.4 mg/dL EGFR > 60 NOTE: For -[place]ren[place] individuals, multiply the result by 1.210. Chronic Kidney Disease: Estimated GFR < 60 mL/min/1.73m2 Severe Kidney Disease: Estimated GFR < 15 mL/min/1.73m2 FBS 101 H 60-99 mg/dL A fasting glucose from 100-125 mg/dl is considered impaired (pre-diabetes). CA 8.9 8.4-10.2 mg/dL AST (GOT) 21 5-37 U/L ALT (GPT) 20 0-40 U/L Triglyceride 111 <150 mg/dL Desirable Triglyceride: less than 150 mg/dL Borderline High Triglyceride 150-199 mg/dL High Triglyceride: 200-499 mg/dL Very High Triglyceride: greater than or equal to 5OO mg/dL Cholesterol 172 <200 mg/dL Desirable Cholesterol: less than 200 mg/dL Borderline High Cholesterol: 200-239 mg/dL High Cholesterol: greater than 239 mg/dL LDL Calculated 101 H <100 mg/dL Desirable LDL: less than 100 mg/dL Near Optimal/Above Optimal LDL: 110-129 mg/dL Borderline High LDL: 130-159 mg/dL High LDL: 160-189 mg/dL Very High LDL: greater than or equal to 190 mg/dL HDL 49 >40 mg/dL Desirable HDL: greater than 40 mg/dL Note: This HDL assay may give artificially low results in patients with liver disease. Vit D 25-OH Tot 44.8 >30 ng/mL Health Based Reference Values* < 20 ng/mL Deficient 20-30 ng/mL Insufficient > 30 ng/mL Sufficient Coding Level of Care Code Est Pt Level 4 (58874) Diagnoses Preoperative examination Z01.818 Rotator cuff arthropathy of right shoulder M12.811 Impaired fasting glucose R73.01 Additional Codes KLAUDIA-7 Assessment Billing - KLAUDIA-7 Assessment Tool: KLAUDIA-7 Assessment 96246 ([id number]) PHQ-9 - 09279 - PHQ-9 Billing: Yes ([id number]) Assessment & Plan Assessment & Plan (1) Preoperative examination: Code(s): Z01.818 - Encounter for other preprocedural examination Plan: 78-year-old male here for preoperative exam for reverse total shoulder arthroplasty, to be done by Dr. Nguyễn on 05/27/2024. He has no history of cardiac or pulmonary disease. Preoperative exam is unremarkable EKG done today showed normal sinus rhythm with no acute ST-T changes. Preo labs have been ordered and if acceptable may proceed with surgery. He has a low cardiac risk index for proposed surgery (2) Rotator cuff arthropathy of right shoulder: Code(s): M12.811 - Other specific arthropathies, not elsewhere classified, right shoulder Category: Medical Plan: Currently followed by Orthopedics, and is scheduled for reverse total shoulder arthroplasty after having failed conservative treatment (3) Impaired fasting glucose: Code(s): R73.01 - Impaired fasting glucose Category: Medical Plan: Your previous fasting blood sugars were elevated above 100 mg/dL. Impaired glucose metabolism increases the risk for developing diabetes mellitus type 2, as well as heart attack and stroke later on. Lifestyle changes that promotes weight loss, healthy eating habits, and regular exercise are important, and can prevent the progression to diabetes. Hemoglobin A1c today is at 5.2% Orders: Orders AMB Hemoglobin A1c 04/10/24 Z13.9 - Encounter for screening, unspecified Prothrombin Time INR 04/10/24 M12.811 - Other specific arthropathies, not elsewhere classified, right shoulder, Z01.818 - Encounter for other preprocedural examination Partial Thromboplastin Time 04/10/24 M12.811 - Other specific arthropathies, not elsewhere classified, right shoulder, Z01.818 - Encounter for other preprocedural examination Basic Metabolic Panel 04/10/24 R73.01 - Impaired fasting glucose, Z01.818 - Encounter for other preprocedural examination Complete Blood Count Auto Diff 04/10/24 M12.811 - Other specific arthropathies, not elsewhere classified, right shoulder, Z01.818 - Encounter for other preprocedural examination
== END 2024-04-10 09:36 | disposition home or self-care (01) ==
PROVIDERS: PCP Internal Medicine; Visit Provider Internal Medicine
DX: Z01.818 Encounter for other preprocedural examination (principal); M12.811 Other specific arthropathies, not elsewhere classified, right shoulder; R73.01 Impaired fasting glucose

== ENCOUNTER → 2024-04-10 08:22 | Outpatient (BNVA) | payer MEDICARE, SELFPAY | PROVIDERS: PCP Internal Medicine; Visit Provider Internal Medicine | DX: Z01.818 Encounter for other preprocedural examination (principal); M12.811 Other specific arthropathies, not elsewhere classified, right shoulder; R73.01 Impaired fasting glucose | CPT/HCPCS: 83036; 96127; 99212 ==

== ENCOUNTER 2024-04-13 06:27 | Outpatient (REF) | payer MEDICARE, SELFPAY ==
[2024-04-13 09:59] LABS: MANUAL DIFF FLAG NO
[2024-04-13 10:03] LABS: Basophils Percent Auto 0.4 % (0-2); Eosinophils Absolute Auto 0.3 X10*3/uL (0.0-0.4); Eosinophils Percent Auto 3.8 % (0-4); Hematocrit 42.9 % (42.0-52.0); Hemoglobin 15.2 g/dl (14.0-18.0); Imm Gran Abs Auto 0.12 X10*3/uL (0.00-0.03); Imm Gran Pct Auto 1.5 % (0.0-0.4); Lymphocytes Absolute Auto 2.7 X10*3/uL (1.2-4.9); Lymphocytes Percent Auto 33.6 % (20-40); Mean Corpuscular HGB Conc 35.4 g/dl (31.0-36.0); Mean Corpuscular Hemoglobin 32.5 pg (27.0-33.0); Mean Corpuscular Volume 91.9 fL (80.0-98.0); Mean Platelet Volume 10.5 fL (9.4-12.4); Neutrophils Absolute Auto 3.9 x10*3/uL (2.0-8.3); Neutrophils Percent Auto 48.7 % (45-73); Platelet Count 215 X10*3/uL (160-400); Red Blood Count 4.67 X10*6/uL (4.60-5.80); Red Cell Distribution Width 11.6 % (11.0-16.0)
[2024-04-13 10:07] LABS: INTERNATIONAL NORM RATIO 1.2 (0.9-1.1); Prothrombin Time 14.2 SEC (10.9-12.4)
[2024-04-13 10:12] LABS: Anion Gap 11 (12-20); Blood Urea Nitrogen 20 mg/dL (9-16); Calcium 8.9 mg/dL (8.4-10.2); Carbon Dioxide 26 mmol/L (22-29); Chloride 107 mmol/L (96-108); Estimated Glomerular Filt Rate > 60; Glucose Random 102 mg/dL (60-115); Potassium 4.3 mmol/L (3.3-5.1); Sodium 140 mmol/L (135-145)
== END 2024-04-13 06:28 | disposition home or self-care (01) ==
LOC: HO.HMGCLDS 06:27
PROVIDERS: PCP Internal Medicine; Visit Provider Internal Medicine
DX: Z01.818 Encounter for other preprocedural examination (principal); M12.811 Other specific arthropathies, not elsewhere classified, right shoulder; R73.01 Impaired fasting glucose
CPT/HCPCS: 36415; 80048; 85025; 85610; 85730

== ENCOUNTER → 2024-04-24 10:06 | Outpatient (BNVA) | payer MEDICARE, SELFPAY | PROVIDERS: PCP Internal Medicine | DX: Z01.818 Encounter for other preprocedural examination (principal) ==

== ENCOUNTER 2024-05-21 08:41 | Outpatient (AMB) | payer MEDICARE, SELFPAY ==
[2024-05-21 08:42] VITALS: BMI 32.4
--- NOTE | 2024-05-21 08:42 | MHC.OFFVIS ---
Vital Signs 05/21/24 08:42 Height 5 ft 5 in Weight 195 lb BMI 32.4 Intake Visit Reasons: Pre-Op: R TSA w/NE 05/27/24 Intake Note: Rahul is a 78 year old right hand dominant male who presents today for a pre op appointment for his right total shoulder arthroplasty 05/27/24 NE. Patient was provided with pain mangement agreement form to review. Allergies caffeine Adverse Reaction (Intermediate, Verified 04/24/24 10:24) Joint Pain tomato Adverse Reaction (Intermediate, Verified 04/24/24 10:24) Stomach Upset HPI HPI Pre-Op: R TSA w/NE 05/27/24: Details: Mr. Hope is a 78-year-old?male?who presents in the office today for?his/her?preoperative history and physical exam prior to a?right reverse total shoulder arthroplasty?to be performed on?05/27/24?by?Dr. Nguyễn.? Patient has tried and failed all conservative treatment. He continues to have difficulties with activities of daily living and has consented to move forward with right reverse total shoulder arthroplasty to be performed with Dr. Nguyễn. [facility] Medical History (Updated 04/22/24 @ 12:29 by Jessika Garza RN) Hiatal hernia Arthritis Impaired fasting glucose Patellofemoral arthralgia of both knees Dupuytren's contracture of right hand Surgical History (Updated 05/21/24 @ 09:07 by Adriana Santiago PA-C) History of esophagogastroduodenoscopy (EGD) H/O colonoscopy Hx of cataract surgery H/O knee surgery History of rotator cuff surgery Family History Brother Mental health disorder Social History Household Members Other:: & grandson Housing: House Are you a primary care partner to a significant other at home: No Do you presently have visiting nurse or other home services: No Patient Tobacco Use Status: Never used Tobacco e-Cigarette/Vaping Use: Never Used Second Hand Smoke Exposure: No Advance Directives Date on File: 08/29/23 service: No Current occupational status: retired Current occupation: right hand dominant Cognitive needs: No Hearing needs: No Vision needs: Yes Review of Systems Const All systems reviewed & are unremarkable except as noted in HPI and below Physical Exam Vital Signs: BMI result Body Mass Index 32.4 Const General: cooperative, healthy appearing, comfortable, no acute distress, well developed, alert and awake Orientation/consciousness: patient oriented x3 HEENT Head: Yes normal to inspection, Yes normocephalic and Yes atraumatic Eyes General: appearance normal, both eyes and all related structures Neck Neck: Yes normal visual inspection and Yes no lymphadenopathy Resp Effort & Inspection: normal respiratory effort and able to speak in complete sentences Cardio Rate: regular rate Peripheral pulses: Peripheral pulses 2+ throughout GI Inspection: Yes normal to inspection Palpation (GI): Soft to palpation Skin General skin exam: no rashes or lesions noted Neuro General: patient oriented x3 Extrem Other: Deltoid intact and firing. Passively I can abduct him to 90 degrees and forward flex him to 130. Actively he has ski scapular recruitment with abduction past 50 degrees and can just get his hand to the back of his head with discomfort. Psych Mental Status: mental status grossly normal Assessment & Plan Assessment & Plan (1) Osteoarthritis of right acromioclavicular joint: Code(s): M19.011 - Primary osteoarthritis, right shoulder Category: Medical (2) Right rotator cuff tear: Code(s): M75.101 - Unspecified rotator cuff tear or rupture of right shoulder, not specified as traumatic Category: Medical (3) Rotator cuff arthropathy of right shoulder: Code(s): M12.811 - Other specific arthropathies, not elsewhere classified, right shoulder Category: Medical Plan I discussed in detail the procedure and what to expect pre and post operatively. We discussed the risks, benefits and alternatives to the surgery as well as the rehabilitation course. The risks; which include, but are not limited to infection, bleeding, nerve injury, ongoing pain, swelling, and stiffness, perioperative risk of injury to bones and soft tissues, and blood clots. I?ve answered all questions and with their understanding they have consented to move forward with right reverse total shoulder arthroplasty with Dr. Nguyễn Patient was fit for an ultrasound off the shelf while in the office today. I have also placed an stat referral for a right shoulder CT scan for preoperative planning. Orders: Orders CT shoulder RT wo IV con Today M12.811 - Other specific arthropathies, not elsewhere classified, right shoulder PT Evaluation and Treatment Today Z96.611 - Presence of right artificial shoulder joint Coding Level of Care Code Global (34950) Diagnoses Osteoarthritis of right acromioclavicular joint M19.011 Right rotator cuff tear M75.101 Rotator cuff arthropathy of right shoulder M12.811
== END 2024-05-21 09:23 | disposition home or self-care (01) ==
PROVIDERS: PCP Internal Medicine; Visit Provider Physician Assistant
DX: M19.011 Primary osteoarthritis, right shoulder (principal); M75.101 Unspecified rotator cuff tear or rupture of right shoulder, not specified as traumatic; M12.811 Other specific arthropathies, not elsewhere classified, right shoulder
CPT/HCPCS: 99024

== ENCOUNTER → 2024-05-21 08:41 | Outpatient (BNVA) | payer MEDICARE, SELFPAY | PROVIDERS: PCP Internal Medicine; Visit Provider Physician Assistant | DX: Z01.818 Encounter for other preprocedural examination (principal); M19.011 Primary osteoarthritis, right shoulder; M75.101 Unspecified rotator cuff tear or rupture of right shoulder, not specified as traumatic | CPT/HCPCS: 99212 ==

== ENCOUNTER 2024-05-22 10:37 | Outpatient (REF) | END 2024-05-22 10:38 | disposition home or self-care (01) | LOC: HO.CT 10:37 | DX: M12.811 Other specific arthropathies, not elsewhere classified, right shoulder (principal) ==

== ENCOUNTER → 2024-05-22 10:39 | Outpatient (BNV) | payer MEDICARE, SELFPAY | PROVIDERS: PCP Internal Medicine; Visit Provider Radiology Diagnostic Radiology | DX: M19.011 Primary osteoarthritis, right shoulder (principal); T84.038A Mechanical loosening of other internal prosthetic joint, initial encounter | CPT/HCPCS: 73200 ==

== ENCOUNTER 2024-05-27 09:46 | Day surgery (SDC) | payer MEDICARE, SELFPAY ==
[2024-04-22 12:14] VITALS: BP 117/70; PULSE 71; RESP 20; O2SAT 96; BMI 32.4
--- NOTE | 2024-04-22 12:33 | P.CONAN_ITS ---
Documented by User: Erin Estrella NP 04/22/24 12:40 HPI - Anesthesia Eval Consult details Narrative: 78yo M for Right Reverse Shoulder Total Arthroplasty, 05/27/24 Medically optimized per PCP No recent illness No CP/SOB with minimal activity PMFSH Active Problems Active Problems: All Active Problems Rotator cuff arthropathy of right shoulder (Acute) Right rotator cuff tear (Acute) Osteoarthritis of right acromioclavicular joint (Acute) Right shoulder pain (Acute) Impaired fasting glucose (Acute) History of rotator cuff surgery (Acute) Past Medical History Medical History Hiatal hernia Arthritis Impaired fasting glucose Patellofemoral arthralgia of both knees Dupuytren's contracture of right hand Family History Family History Brother Mental health disorder Family history of problems with anesthesia: No Surgical History Surgical History History of esophagogastroduodenoscopy (EGD) H/O colonoscopy Hx of cataract surgery H/O knee surgery History of rotator cuff surgery History of Problems with Anesthesia: No Social History Social History Household Members Other:: & grandson Housing: House Are you a primary physician assistant primary care to a significant other at home: No Do you presently have visiting nurse or other home services: No Patient Tobacco Use Status: Never used Tobacco e-Cigarette/Vaping Use: Never Used Second Hand Smoke Exposure: No Use of substances other than those prescribed or required for medical reasons: No Have you been hit, kicked, punched, or otherwise hurt by someone within the past year? If so, by whom?: No Spiritual Healthcare Practices: none Cheondoism Healthcare Practices: Christianity Cultural Healthcare Practices: none Are you DNR?: No Advance Directives: Yes Advance Directives Information Provided: Yes Advance Directives on File: Yes Advance Directives Date on File: 08/29/23 Recently lost weight without trying: No Eating poorly because of decreased appetite: No Nutrition Risks: Surgical patient >75years Poor oral hygiene: No (some extracted teeth) service: No Current occupational status: retired Current occupation: right hand dominant Cognitive needs: No Hearing needs: No Vision needs: Yes Meds Allergies Allergy/AdvReac Type Severity Reaction Status Date / Time pineapple Allergy Unknown Verified 05/27/24 10:51 caffeine AdvReac Intermediate Joint Pain Verified 05/27/24 10:51 tomato AdvReac Intermediate Stomach Verified 05/27/24 10:51 Upset Home Medications ?Medication ?Instructions ?Recorded ?Confirmed ?Last Taken ?Type multivitamin 1 tab PO DAILY 12/12/20 05/27/24 05/26/24 History diphenhydramine 25 1 tab PO BEDTIME PRN Insomnia 09/27/23 05/27/24 05/26/24 History mg-acetaminophen 500 mg tablet (Tylenol PM Extra Strength) Exam Height,Weight and Vital Signs: Height 5 ft 5 in Weight 88.451 kg Last Vital Signs Pulse 71 04/22/24 12:14 Resp 20 04/22/24 12:14 BP 117/70 04/22/24 12:14 Pulse Ox 96 04/22/24 12:14 O2 Del Method Room Air 04/22/24 12:14 Pertinent Lab Results Pertinent Lab Results: Laboratory Tests 04/13/24 06:37 WBC 8.0 Hgb 15.2 Hct 42.9 Plt Count 215 Sodium 140 Potassium 4.3 Chloride 107 Carbon Dioxide 26 BUN 20 H Creatinine 0.77 Narrative Narrative: EKG 03/2024 NSR @ 65 Airway Mallampati Class: III TM Dist: >3cm Neck ROM: Full Heart: RRR Lungs: CTAB Assessment and Plan Assessment Anesthesia Assessment: Anesthesia Plan Discussed and PAT Visit Final Anesthetic Review Family History of Problems with Anesthesia: No History of Problems with Anesthesia: No Documented by User: So Negron MD 05/27/24 11:37 [facility] Past Medical History Medical History Hiatal hernia Arthritis Impaired fasting glucose Patellofemoral arthralgia of both knees Dupuytren's contracture of right hand Family History Family History Brother Mental health disorder Surgical History Surgical History History of esophagogastroduodenoscopy (EGD) H/O colonoscopy Hx of cataract surgery H/O knee surgery History of rotator cuff surgery Social History Social History Household Members Other:: & grandson Housing: House Are you a primary physician assistant primary care to a significant other at home: No Do you presently have visiting nurse or other home services: No Patient Tobacco Use Status: Never used Tobacco e-Cigarette/Vaping Use: Never Used Second Hand Smoke Exposure: No Use of substances other than those prescribed or required for medical reasons: No Have you been hit, kicked, punched, or otherwise hurt by someone within the past year? If so, by whom?: No Spiritual Healthcare Practices: none [place]ism Healthcare Practices: Christianity Cultural Healthcare Practices: none Are you DNR?: No Advance Directives: Yes Advance Directives Information Provided: Yes Advance Directives on File: Yes Advance Directives Date on File: 08/29/23 Recently lost weight without trying: No Eating poorly because of decreased appetite: No Nutrition Risks: Surgical patient >75years Poor oral hygiene: No (some extracted teeth) service: No Current occupational status: retired Current occupation: right hand dominant Cognitive needs: No Hearing needs: No Vision needs: Yes Meds Allergies Allergy/AdvReac Type Severity Reaction Status Date / Time pineapple Allergy Unknown Verified 05/27/24 10:51 caffeine AdvReac Intermediate Joint Pain Verified 05/27/24 10:51 tomato AdvReac Intermediate Stomach Verified 05/27/24 10:51 Upset Home Medications ?Medication ?Instructions ?Recorded ?Confirmed ?Last Taken ?Type multivitamin 1 tab PO DAILY 12/12/20 05/27/24 05/26/24 History diphenhydramine 25 1 tab PO BEDTIME PRN Insomnia 09/27/23 05/27/24 05/26/24 History mg-acetaminophen 500 mg tablet (Tylenol PM Extra Strength) Assessment and Plan Final Anesthetic Review NPO: Yes ASA Class: III Final Preanesthetic Review: No Changes in Pt Med Stat, Meds/Allgs Chart Reviewed, Consent Obtained/Reviewed and Anes Risks/Benef Reviewed Patient Risk: Intermediate Procedure Risk: Low Anesthetic Plan Anesthetic Plan: GA and Regional Block Disposition: Standard PACU
[2024-04-22 14:48] LABS: MRSA Nasal PCR NEGATIVE (Negative); SA Nasal PCR POSITIVE (Negative)
[2024-05-27] VITALS (11 sets, daily range): BP systolic 95–148; BP diastolic 54–87; PULSE 55–92; RESP 12–19; TEMP 36–37; O2SAT 94–99
--- NOTE | 2024-05-27 10:39 | MHC.SHP ---
Pre-Procedural Eval Section A - 24 Hr Update-Section A only Date of Service: 05/27/24 The patient is an INPATIENT: No Changes since office visit: No Cold of Flu in the past 2 weeks, No New Medical Problems, No Changes in Medication and No Patient answered all questions The patient has been examined within 24 hours of the surgical procedure. The History & Physical has been completed within 30 days and I have reviewed it.: Yes Section B - Complete if H&P > 30 days Chief Complaint: Other specific arthropathies, not elsewhere Allergies: Allergies Allergy/AdvReac Type Severity Reaction Status Date / Time pineapple Allergy Unknown Unverified 05/26/24 12:54 caffeine AdvReac Intermediate Joint Pain Verified 04/24/24 10:24 tomato AdvReac Intermediate Stomach Verified 04/24/24 10:24 Upset Plan I have reviewed the history and physical and performed a pertinent physical examination on my patient. No changes have occurred unless specified. Time Spent With Patient Time: Total time managing care of this patient today ____ minutes.
[2024-05-27] MEDS: Lactated Ringers 1,000 ML 100 ML IVCONT ×2 (11:03→15:54)
--- NOTE | 2024-05-27 11:37 | HO.POSTANES ---
Post Anesthesia Evaluation Post Anesthesia Evaluation Date of Service: 05/27/24 Vital Signs: Vital Signs Temp Pulse Resp BP Pulse Ox O2 Del Method 05/27/24 10:47 98.3 F 70 12 128/74 96 Room Air
[2024-05-27] MEDS: oxyCODONE HCl Immed Release 5 MG TABLET PO (16:27)
--- NOTE | 2024-05-27 16:50 | P.BOP_ITS ---
Brief Operative Note Date of Service: 05/27/24 Pre-op diagnosis: Right Rotator Cuff Arthropathy Post-op diagnosis: same Procedure: rTSA right Implants: Tournier rTSA Surgeon: Art Nguyễn MD Anesthesia: GETA and regional Was an Supervisor Of Operations used for this Procedure?: Yes Supervisor Of Operations: Adriana Santiago Estimated blood loss (mL): 200 IV fluids (mL): 1,200 Pathology: none sent Condition: stable Disposition: PACU
[2024-05-27] MEDS: ceFAZolin Sodium/Dextrose,Iso 2 GM/50 ML PIGGYBACK IV (18:10)
[2024-05-27] MEDS: ondansetron HCL 4 MG/2 ML VIAL IVPUSH (18:40)
[2024-05-27] MEDS: oxyCODONE HCl ER 10 MG TAB.ER.12H PO (20:42)
[2024-05-27] MEDS: Celecoxib 200 MG CAPSULE PO (20:42)
[2024-05-27] MEDS: Docusate Sodium 100 MG CAPSULE PO (20:42)
[2024-05-28] MEDS: Lactated Ringers 1,000 ML 100 ML IVCONT (01:32)
[2024-05-28 02:55] VITALS: BP 113/73; PULSE 71; RESP 17; TEMP 36; O2SAT 97
[2024-05-28 06:21] VITALS: RESP 17
[2024-05-28] MEDS: HYDROmorphone HCl 0.5 MG/0.5 ML SYRINGE 0.25 MG IVPUSH (06:21)
[2024-05-28 07:35] VITALS: BP 109/64; PULSE 74; RESP 18; TEMP 36.9; O2SAT 94
[2024-05-28 09:04] LABS: Basophils Percent Auto 0.2 % (0-2); Eosinophils Percent Auto 0.1 % (0-4); Hematocrit 38.6 % (42.0-52.0); Hemoglobin 13.3 g/dl (14.0-18.0); Imm Gran Abs Auto 0.07 X10*3/uL (0.00-0.03); Imm Gran Pct Auto 0.5 % (0.0-0.4); MANUAL DIFF FLAG SCAN; Mean Corpuscular HGB Conc 34.5 g/dl (31.0-36.0); Mean Platelet Volume 10.7 fL (9.4-12.4); Monocytes Absolute Auto 1.7 X10*3/uL (0.1-1.2); Monocytes Percent Auto 12.4 % (2-11); Neutrophils Absolute Auto 9.7 x10*3/uL (2.0-8.3); Neutrophils Percent Auto 71.8 % (45-73); Platelet Count 199 X10*3/uL (160-400); Red Blood Count 4.15 X10*6/uL (4.60-5.80); Red Cell Distribution Width 11.6 % (11.0-16.0); SCAN SMEAR FLAG 1; White Blood Count 13.6 X10*3/uL (4.8-10.8)
[2024-05-28] MEDS: Celecoxib 200 MG CAPSULE PO (09:05)
[2024-05-28] MEDS: Multivitamin TABLET 1 TAB PO (09:05)
[2024-05-28] MEDS: oxyCODONE HCl ER 10 MG TAB.ER.12H PO (09:05)
[2024-05-28] MEDS: Docusate Sodium 100 MG CAPSULE PO (09:05)
[2024-05-28] MEDS: 0.9 % Sodium Chloride Flush 3 ML SYRINGE IVFLUSH (09:06)
--- NOTE | 2024-05-28 09:16 | P.DS_ITS ---
DS: Providers Provider Date of Service: 05/28/24 Date of discharge: 05/28/24 Primary care physician: Unknown Physician Consults: 05/27/24 19:52 Consult to Hospitalist Routine Comment: Consulting Provider: [facility] Hospitalists Reason For Exam: hypotensive post op DS: Diagnosis Discharge Diagnosis (1) Status post reverse total arthroplasty of right shoulder: Status: Acute DS: Summary Hospital Course Hospital Course: The patient underwent a successful reversie right total shoulder arthroplasty on 05/27/24 , was transferred to PACU and then to the floor to recover. During their stay, their vitals were stable, afebrile at . Labs were unremarkable, H/H 13.3/38.6. Occupational therapy should include * Wear sling at all times unless for hygiene and exercises * Pendelums three times a day * Physical Therapy/ Occupation therapy * ---No raising Right arm above 90 degrees, No ER/IR beyond neutral, no Abduction beyond 90 degrees * ---No heavy lifting * ---Elbow and wrist ROM ok Prior to discharge, dressing clean dry and intact, new Aquacel dressing applied. The Aquacel dressing should remain intact and dry at all times. Any concerns with the dressing, please contact orthopedic office. No showering. The plan is to be discharged home with services Time Attestation Discharge Coordination Time (in mins): 30 Quality: Safe Use of Opioids Does Pt have an Active Cancer Diagnosis on the Problem List?: No Quality: Stroke Does the patient have a stroke diagnosis?: No Physical Exam Vital Signs: Vital Signs: Last Vital Signs Temp 98.4 F 05/28/24 07:35 Pulse 74 05/28/24 07:35 Resp 18 05/28/24 07:35 BP 109/64 05/28/24 07:35 Pulse Ox 94 05/28/24 07:35 O2 Del Method Room Air 05/28/24 07:35 O2 Flow Rate 2 05/28/24 02:55 BMI result Body Mass Index 32.4 DS: Data Data Completed and Pending Pending studies at discharge: Pending at discharge 05/27/24 14:39 Surgical [PTH] Routine Labs on day of discharge: Laboratory Results - last 24 hr 05/28/24 07:51 WBC 13.6 H RBC 4.15 L Hgb 13.3 L Hct 38.6 L MCV 93.0 MCH 32.0 MCHC 34.5 RDW 11.6 Plt Count 199 MPV 10.7 Discharge Plan Discharge Patient Disposition: Home Health Service Referrals: Adriana Santiago PA-C [Physician Electrical Products Engineer] - 2 Weeks ([facility] Orthopedic Surgeons Adriana Santiago PA-C ) Discharge Medications: New docusate sodium 100 mg Capsule 100 mg PO BID 14 Days Qty: 28 0RF celecoxib 200 mg Capsule 200 mg PO BID 30 Days Qty: 60 0RF acetaminophen 325 mg Tablet 650 mg PO Q6H PRN (Reason: Pain, Mild 1-3,Fever,Headache) 30 Days Qty: 240 0RF oxycodone 5 mg Tablet 5 mg PO Q4H PRN (Reason: Pain, Moderate(Pain Scale 4-6)) 7 Days Qty: 42 0RF Rx Instructions: Partial Fill upon patient request. Continued multivitamin Tablet 1 tab PO DAILY Discontinued Tylenol PM Extra Strength 25-500 mg tablet 1 tab PO BEDTIME PRN (Reason: Insomnia) Discharge Orders: Discharge Order (Routine); Ordered 05/28/24 Ordered By: Jumana Jimenez Diet: Regular diet Activity on Discharge: Use cane or walker Activity Restrictions/Additional Instructions: * Wear sling at all times unless for hygiene and exercises * Pendelums three times a day * Physical Therapy/ Occupation therapy * ---No raising Right arm above 90 degrees, No ER/IR beyond Neutral, no Abduction beyond 90 degrees * ---No heavy lifting * ---Elbow and wrist ROM ok * Follow up with orthopedics in 2 weeks Print Language: Irish
[2024-05-28 09:18] LABS: Anion Gap 12 (12-20); Blood Urea Nitrogen 16 mg/dL (9-16); Calcium 8.5 mg/dL (8.4-10.2); Carbon Dioxide 26 mmol/L (22-29); Chloride 104 mmol/L (96-108); Creatinine Clr Calc Pharmacy 87.6; Estimated Glomerular Filt Rate > 60; Glucose Fasting 102 mg/dL (60-99); Potassium 4.1 mmol/L (3.3-5.1); Sodium 138 mmol/L (135-145)
--- NOTE | 2024-05-28 09:19 | W.MHC.F2F ---
Service Date Service Date: 05/28/24 Encounter Date of encounter: 05/28/24 Reasons for Services Signs and symptoms assessed: Weakness, poor balance, poor gait mechanics Reason for physical therapy: home safety and mobility, therapeutic exercises, restore joint function, gait/transfer training, ADL training and energy conservation Reason for occupational therapy: home safety and mobility, therapeutic exercises, restore joint function, gait/transfer training, ADL training and energy conservation Homebound: Leaving the home is medically contraindicated at this time without the asist of a device and/or another person due th the listed conditions above and below. Reason homebound: unsteady gait / fall risk, pain with ambulation and unable to drive Homebound supporting statement: Pt. is considered home bound due to recent surgery. Unable to drive, poor balance, poor gait mechanics. Certification: Based on the above findings, I certify that this patient is confined to the home and needs intermittent senior living care, physical therapy and/or speech therapy, or continues to need occupational therapy. The patient is under my care, and I have initiated the establishment of the plan of care. The patient will be followed by a physician who will periodically review the plan of care. Time Spent With Patient Time: Total time managing care of this patient today ____ minutes.
[2024-05-28 09:33] LABS: SLIDE REVIEW VERIFIED
--- NOTE | 2024-05-28 09:50 | MHC.CM.PN ---
Patient lives in a home w/ his and adult grandson. Functionally independent. Denies use of DME or services. Has a cane and walker in the home, but does not use. PCP Rosy Ulloa MD HCP on file and verified. DP: Medically cleared for dc home w/ new PT/OT services through [facility]. to transport ~10:30am . RN aware.
--- NOTE | 2024-05-28 10:30 | HO.POSTANES ---
Post Anesthesia Evaluation Post Anesthesia Evaluation Date of Service: 05/28/24 Vital Signs: Vital Signs Temp Pulse Resp BP Pulse Ox O2 Del Method O2 Flow Rate 05/28/24 07:35 98.4 F 74 18 109/64 94 Room Air 05/28/24 06:21 17 05/28/24 02:55 96.8 F 71 17 113/73 97 Nasal Cannula 2 05/27/24 23:47 96.8 F 69 17 112/65 97 Nasal Cannula 2 Anesthesia: Nerve Block (right brachial plexus) and General Endotracheal-GETA Mental Status: Awake Pain Control: Satisfactory Nausea/Vomiting: None Hydration: Adequate Anesthesia-Related Issues: No Anes. Related Issues
[2024-05-28 10:37] VITALS: BP 124/67; PULSE 84; RESP 18; TEMP 36.2; O2SAT 96
--- NOTE | 2024-05-28 11:13 | HO.PM.IMCN ---
History of Present Illness Data of Consult Service Date: 05/28/24 Primary Care Provider: Unknown Physician HPI Reason for consult: Post-op hypotension Pt is a 78-year-old male without significant PMH not on home medications other than a multivitamin who was admitted to the hospital under orthopedic services for right shoulder arthroplasty. POD1. Hospitalist consult for postop hypotension. Postop patient's BP was noted to be soft at 95/54 with repeat 20 minutes later 107/58. Pt without hx of hypertension or hypotension. [facility] Medical History Hiatal hernia Arthritis Impaired fasting glucose Patellofemoral arthralgia of both knees Dupuytren's contracture of right hand Family History Brother Mental health disorder Surgical History History of esophagogastroduodenoscopy (EGD) H/O colonoscopy Hx of cataract surgery H/O knee surgery History of rotator cuff surgery Social History Household Members Other:: & grandson Housing: House Are you a primary healthcare facility administrator to a significant other at home: No Do you presently have visiting nurse or other home services: No Patient Tobacco Use Status: Never used Tobacco e-Cigarette/Vaping Use: Never Used Second Hand Smoke Exposure: No Use of substances other than those prescribed or required for medical reasons: No Currently Displaying Signs/Symptoms of Drug Intoxication Withdrawal: No Have you been hit, kicked, punched, or otherwise hurt by someone within the past year? If so, by whom?: No Spiritual Healthcare Practices: none Rastafari Healthcare Practices: Caodaism Cultural Healthcare Practices: none Are you DNR?: No Advance Directives: Yes Advance Directives Information Provided: Yes Advance Directives on File: Yes Advance Directives Date on File: 08/29/23 Recently lost weight without trying: No Eating poorly because of decreased appetite: No Nutrition Risks: Surgical patient >75years Poor oral hygiene: No (some extracted teeth) service: No Current occupational status: retired Current occupation: right hand dominant Cognitive needs: No Hearing needs: No Vision needs: Yes Meds Allergies Allergy/AdvReac Type Severity Reaction Status Date / Time pineapple Allergy Unknown Verified 05/27/24 10:51 caffeine AdvReac Intermediate Joint Pain Verified 05/27/24 10:51 tomato AdvReac Intermediate Stomach Verified 05/27/24 10:51 Upset Active Medications: Current Medications Acetaminophen (Acetaminophen 325 Mg Tablet) 650 mg PO Q6H PRN PRN Reason: Pain, Mild 1-3,fever,headache Celecoxib (Celecoxib 200 Mg Capsule) 200 mg PO BID [facility] Last Admin: 05/28/24 09:05 Dose: 200 mg Diphenhydramine HCl (Diphenhydramine Hcl 25 Mg Capsule) 25 mg PO BEDTIME PRN PRN Reason: Insomnia Docusate Sodium (Docusate Sodium 100 Mg Capsule) 100 mg PO BID [facility] Last Admin: 05/28/24 09:05 Dose: 100 mg Hydromorphone HCl (Hydromorphone Hcl 0.5 Mg/0.5 Ml Syringe) 0.25 mg IVPUSH Q4H PRN; Protocol PRN Reason: Pain, Severe (Pain Scale 7-10) Last Admin: 05/28/24 06:21 Dose: 0.25 mg Lactated Ringer's (Lr) 1,000 mls @ 100 mls/hr IVCONT .Q10H [facility] Last Admin: 05/28/24 01:32 Dose: 100 mls/hr Magnesium Hydroxide (Milk Of Magnesia 30 Ml Oral.Susp) 30 ml PO DAILY PRN PRN Reason: Constipation Melatonin (Melatonin 3 Mg Tablet) 6 mg PO BEDTIME PRN PRN Reason: Insomnia Multivitamins/Vitamin C (Multivitamin Tablet) 1 tab PO DAILY [facility] Last Admin: 05/28/24 09:05 Dose: 1 tab Ondansetron HCl (Ondansetron Hcl 4 Mg/2 Ml Vial) 4 mg IVPUSH Q8H PRN PRN Reason: Nausea and Vomiting Last Admin: 05/27/24 18:40 Dose: 4 mg Oxycodone HCl (Oxycodone Hcl Immed Release 5 Mg Tablet) 5 mg PO Q4H PRN PRN Reason: Pain, Moderate(Pain Scale 4-6) Last Admin: 05/27/24 16:27 Dose: 5 mg Oxycodone HCl (Oxycodone Hcl Er 10 Mg Tab.Er.12h) 10 mg PO BID [facility] Last Admin: 05/28/24 09:05 Dose: 10 mg Sodium Chloride (0.9 % Sodium Chloride Flush 3 Ml Syringe) 3 ml IVFLUSH QSHIFT [facility] Last Admin: 05/28/24 09:06 Dose: 3 ml Home Medications ?Medication ?Instructions ?Recorded ?Confirmed ?Last Taken ?Type multivitamin 1 tab PO DAILY 12/12/20 05/27/24 05/26/24 History Physical Exam Vital Signs and Narrative: Vital Signs: Last Vital Signs Temp 97.1 F 05/28/24 10:37 Pulse 84 05/28/24 10:37 Resp 18 05/28/24 10:37 BP 124/67 05/28/24 10:37 Pulse Ox 96 05/28/24 10:37 O2 Del Method Room Air 05/28/24 10:37 O2 Flow Rate 2 05/28/24 02:55 BMI result Body Mass Index 32.4 Results Labs 05/28/24 07:51 05/28/24 07:51 Labs: Laboratory Results - last 24 hr 05/28/24 07:51 MCV 93.0 MCH 32.0 MCHC 34.5 RDW 11.6 Plt Count 199 MPV 10.7 Immature Gran % (Auto) 0.5 H Neut % (Auto) 71.8 Lymph % (Auto) 15.0 L [place] % (Auto) 12.4 H Eos % (Auto) 0.1 Baso % (Auto) 0.2 Lymph # (Auto) 2.0 [place] # (Auto) 1.7 H Eos # (Auto) 0.0 Baso # (Auto) 0.0 Abs Immat Gran (auto) 0.07 H Absolute Neuts (auto) 9.7 H Absolute Nucleated RBC 0.000 Nucleated RBC % (auto) 0.0 Smear Tech's Comments VERIFIED Anion Gap 12 Estim Creat Clear Calc 87.6 Estimated GFR > 60 Fasting Glucose 102 H Calcium 8.5
--- NOTE | 2024-05-28 12:00 | PM.EVENT ---
Event Note Date of Service: 05/28/24 Event Note: Pt is a 78-year-old male without significant PMH not on home medications other than a multivitamin who was admitted to the hospital under orthopedic services for right shoulder arthroplasty. POD1. Hospitalist consult for postop hypotension. Postop patient's BP was noted to be soft at 95/54 with repeat 20 minutes later 107/58. Pt was treated with 2 L IVF bolus and placed on maintenance fluids with good effect. Has not had recurrent soft BP since 1850 last evening. Currently normotensive at 120/67. Vitals appear stable and no other intervention indicated at this time. Thank you for allowing us to participate in the care of this pt. Will sign please re-consult if any acute issue or need arises. Time Spent With Patient Time: Total time managing care of this patient today ____ minutes.
--- NOTE | 2024-06-05 14:46 | W.PM.OPN ---
Operative Note Operative Note Date of Service: 05/27/24 Narrative: Date of Service: 05/27/24 Pre-op diagnosis: Right Rotator Cuff Arthropathy Post-op diagnosis: same Procedure: rTSA right Implants: Tournier rTSA 25 baseplate with 39mm glenosphere; Flex ascend 3 b stem with standard tray and 39/+6/7.5 high offset insert Surgeon: Art Nguyễn MD Anesthesia: GETA and regional Was an Housing Case Manager used for this Procedure?: Yes Housing Case Manager: Adriana Santiago Estimated blood loss (mL): 200 IV fluids (mL): 1,200 Pathology: none sent Condition: stable Disposition: PACU Procedure in detail: Patient was brought to the operating room and placed in the beach chair position on the surgical table. The limb was prepped and draped in standard sterile fashion and a time out was called to identify proper site, proper procedure and IV antibiotics per weight were administered. I began by making a deltopectoral incision from the coracoid to the pectoralis insertion. Blunt dissection identified the cephalic vein which was retracted laterally. Blunt dissection was taken down to the 3 sisters which were cauterized. I then made a full-thickness capsulotomy involving the subscapularis. This was then tagged and the arm was externally rotated and extended and the head was dislocated. The humeral head was high riding and required a release of the intact posterior fibers of the rotator cuff. There was no supraspinatus/infraspinatus. Once the head was well visualized a anatomic neck cut was made in approximately 130 2 degree angle while protecting the posterior and inferior soft tissues. A starter awl was used to identify the canal and then I broached up to a size 3 at 30 degrees of version. I then placed my head protector over the broach and turned my attention to the glenoid. Posterior anterior and superior glenoid retractors were placed and the biceps was tenotomized and labral tissue was removed. Care was taken to protect the inferior soft tissues. Based on the preoperative CT and templating a guide pin was placed in false pass retroversion (8 deg) and neutral inclination. Using a wedge Reamer I reamed down to bleeding bone mostly inferiorly and placed the glenoid drill guide. My central screw was drilled to a depth of 30mm and a 25 baseplate was inserted I then placed the proximal nonlocking and locking screws circumferentially around the central screw (5.0). I then placed a the 39 mm glenosphere. I then returned to the humerus where I trialed a?3b stem with a39 +6/7.5 tray poly. Reduction was difficulty as he was tight but I was able to reduce it and he was very stable with full motion. I was satisfied with the height and the stability. I irrigated copiously and then removed the tiral implants. The construct was put togeth on the back table without the poly and then inserted with a mallet. I then placed the 39/ +6/7.5 high offset poly. I was satisfied with the stability of the implants. I then irrigated and repaired the subscapularis with fiberwire.? I closed in a layered fashion with absorbable suture and ian and the patient was placed in a sterile dressing and an abduction sling.? He was extubated brought to recovery room stable condition there were no known complications.
== END 2024-05-28 11:58 | disposition home health service (06) ==
LOC: HO.SSS 09:47 → HO.S3 14:18
PROVIDERS: Physician Assistant; PCP Internal Medicine; Visit Provider Orthopaedic Surgery
PROC: (CPT 23472; principal; 2024-05-27 13:20)
DX: M12.811 Other specific arthropathies, not elsewhere classified, right shoulder (principal); M25.511 Pain in right shoulder; I95.81 Postprocedural hypotension; R26.89 Other abnormalities of gait and mobility; M72.0 Palmar fascial fibromatosis [Dupuytren]; M22.2X9 Patellofemoral disorders, unspecified knee; R73.01 Impaired fasting glucose; Z79.899 Other long term (current) drug therapy; Z98.890 Other specified postprocedural states
CPT/HCPCS: 23472; 36415; 80048; 85025; 86850; 86900; 86901; 87640; 87641; 88304; 88311; 97165; C1713; C1776; J0131; J0665; J0690; J1100; J1171; J2003; J2250; J2371; J2405; J2704; J3010; J7120

== ENCOUNTER → 2024-05-27 09:46 | Outpatient (BNV) | payer MEDICARE, SELFPAY | PROVIDERS: Visit Provider Orthopaedic Surgery | DX: Z47.1 Aftercare following joint replacement surgery (principal); Z96.611 Presence of right artificial shoulder joint | CPT/HCPCS: 23472; 99024; G0180 ==

== ENCOUNTER 2024-06-11 10:47 | Outpatient (REF) | payer MEDICARE, SELFPAY ==
--- NOTE | ~2024-06-11 | XR_ITS ---
EXAMINATION: XR SHOULDER 2 OR MORE VIEWS RIGHT HISTORY: M25.519 - Pain in unspecified shoulder COMPARISON: Comparison is made with the prior examination dated 09/27/2023. FINDINGS: Two views of the right shoulder are submitted. The patient is status post reverse shoulder arthroplasty. The orthopedic hardware is in anatomic alignment. There is no fracture or dislocation. There is a suture anchor in the acromion. The soft tissues are unremarkable. XR/XR shoulder RT min 2V IMPRESSION: Status post reverse right shoulder arthroplasty. Electronically signed by: Javan Bay MD 06/11/2024 03:17 PM [facility]
== END 2024-06-11 10:48 | disposition home or self-care (01) ==
LOC: HO.HOSX 10:47
PROVIDERS: Visit Provider Physician Assistant
DX: M25.511 Pain in right shoulder (principal); Z96.611 Presence of right artificial shoulder joint
CPT/HCPCS: 73030; 99212

== ENCOUNTER 2024-06-11 12:34 | Outpatient (AMB) | payer MEDICARE, SELFPAY ==
--- NOTE | 2024-06-11 12:46 | MHC.OFFVIS ---
Intake Visit Reasons: 2WK PO: R TSA w/NE 05/27/24 Intake Note: Rahul is a 78 year old male who presents today for a post op appointment s/p right total shoulder arthroplasty 05/27/24 NE. Patient reports he is doing well and has been working with PT. Allergies pineapple Allergy (Verified 06/11/24 12:58) Unknown caffeine Adverse Reaction (Intermediate, Verified 06/11/24 12:58) Joint Pain tomato Adverse Reaction (Intermediate, Verified 06/11/24 12:58) Stomach Upset HPI HPI 2WK PO: R TSA w/NE 05/27/24: Details: Mr. Hope is a 78-year-old male who presents to the office today status post reverse right total shoulder arthroplasty performed on 05/27/[address] Nguyễn. Patient presents to the office stating the abduction sling positioned appropriately. Overall he is doing very well. [facility] Medical History Hiatal hernia Arthritis Impaired fasting glucose Patellofemoral arthralgia of both knees Dupuytren's contracture of right hand Surgical History History of esophagogastroduodenoscopy (EGD) H/O colonoscopy Hx of cataract surgery H/O knee surgery History of rotator cuff surgery Family History Brother Mental health disorder Social History Household Members Other:: & grandson Housing: House Are you a primary patient care associate to a significant other at home: No Do you presently have visiting nurse or other home services: No Patient Tobacco Use Status: Never used Tobacco e-Cigarette/Vaping Use: Never Used Second Hand Smoke Exposure: No Advance Directives Date on File: 08/29/23 service: No Current occupational status: retired Current occupation: right hand dominant Cognitive needs: No Hearing needs: No Vision needs: Yes Physical Exam Const General: cooperative, healthy appearing and no acute distress Resp Effort & Inspection: normal respiratory effort and able to speak in complete sentences Cardio Rate: regular rate Peripheral pulses: Peripheral pulses 2+ throughout Skin Lesions: no lesions Rashes: no rashes Extrem Other: Right shoulder incision site is clean dry and intact. Amarilis intact. No surrounding erythema or drainage. No signs of infection. Forward flexion abduction to 45 degrees. NVI. Assessment & Plan Assessment & Plan (1) S/p reverse total shoulder arthroplasty: Code(s): Z96.619 - Presence of unspecified artificial shoulder joint Category: Surgical Plan Mr. Hope is a 78-year-old male who presents to the office today status post reverse right total shoulder arthroplasty performed on 05/27/[address] Nguyễn. Patient presents to the office stating the abduction sling positioned appropriately. Overall he is doing very well. Small the office today, amarilis were removed and Steri-Strips were applied. He will transition to outpatient physical therapy. They would like to attend AT in [place]. A paper copy of the prescription was handed to the patient with instruction to call their office to schedule appointments as soon as possible. They will follow up in [address] Nguyễn, sooner if needed. X-rays of the right shoulder which were obtained while in the office today and were reviewed by me, Adriana Santiago PA-C, revealed intact with reverse total shoulder arthroplasty with satisfactory alignment. Orders: Orders XR shoulder RT min 2V Today M25.519 - Pain in unspecified shoulder PT Evaluation and Treatment Today Z96.611 - Presence of right artificial shoulder joint, Z96.619 - Presence of unspecified artificial shoulder joint Coding Level of Care Code Global (01580) Diagnoses S/p reverse total shoulder arthroplasty Z96.619
== END 2024-06-11 12:58 | disposition home or self-care (01) ==
PROVIDERS: PCP Internal Medicine; Visit Provider Physician Assistant
DX: Z96.619 Presence of unspecified artificial shoulder joint (principal)
CPT/HCPCS: 99024

== ENCOUNTER → 2024-06-11 12:36 | Outpatient (BNV) | payer MEDICARE, SELFPAY | PROVIDERS: Visit Provider Radiology Diagnostic Radiology | DX: Z96.611 Presence of right artificial shoulder joint (principal) | CPT/HCPCS: 73030 ==

== ENCOUNTER 2024-07-02 11:21 | Outpatient (REF) | payer MEDICARE, SELFPAY ==
--- NOTE | ~2024-07-02 | XR_ITS ---
EXAMINATION: XR SHOULDER 2 OR MORE VIEWS RIGHT HISTORY: M25.519 - Pain in unspecified shoulder COMPARISON: Comparison is made with the prior examination dated 06/11/2024. FINDINGS: Three views of the right shoulder are submitted. The patient is again noted to be status post reverse right shoulder arthroplasty antegrade elements are in anatomic alignment. There is no radiographic evidence of loosening. There is no fracture or dislocation. A suture anchor is again seen in the acromion. The soft tissues are unremarkable. XR/XR shoulder RT min 2V IMPRESSION: Status post reverse right shoulder arthroplasty. Electronically signed by: Javan Bay MD 07/03/2024 03:48 PM EDT
== END 2024-07-02 11:22 | disposition home or self-care (01) ==
LOC: HO.HOSX 11:21
PROVIDERS: Visit Provider Orthopaedic Surgery
DX: Z47.1 Aftercare following joint replacement surgery (principal); Z96.611 Presence of right artificial shoulder joint
CPT/HCPCS: 73030; 99212

== ENCOUNTER 2024-07-02 12:30 | Outpatient (AMB) | payer MEDICARE, SELFPAY ==
--- NOTE | 2024-07-02 12:42 | MHC.OFFVIS ---
Intake Visit Reasons: 6WK PO: R TSA w/NE 05/27/24 Intake Note: Rahul is a 78 year old male who presents today for a post operative appointment about 6 weeks s/p right total shoulder arthroplasty 05/27/24 NE. Patient reports that he is doing well with mild pain. He complains of right knee pain. Allergies pineapple Allergy (Verified 06/11/24 12:58) Unknown caffeine Adverse Reaction (Intermediate, Verified 06/11/24 12:58) Joint Pain tomato Adverse Reaction (Intermediate, Verified 06/11/24 12:58) Stomach Upset HPI HPI 6WK PO: R TSA w/NE 05/27/24: Details: Rahul is a 78 year old male who presents today for a post operative appointment about 6 weeks s/p right total shoulder arthroplasty 05/27/24 NE. Patient reports that he is doing well with mild pain. He is doing PT exercises. His motion is improving. He complains of right knee pain. [facility] Medical History Hiatal hernia Arthritis Impaired fasting glucose Patellofemoral arthralgia of both knees Dupuytren's contracture of right hand Surgical History History of esophagogastroduodenoscopy (EGD) H/O colonoscopy Hx of cataract surgery H/O knee surgery History of rotator cuff surgery Family History Brother Mental health disorder Social History Household Members Other:: & grandson Housing: House Are you a primary managed care coordinator to a significant other at home: No Do you presently have visiting nurse or other home services: No Patient Tobacco Use Status: Never used Tobacco e-Cigarette/Vaping Use: Never Used Second Hand Smoke Exposure: No Advance Directives Date on File: 08/29/23 service: No Current occupational status: retired Current occupation: right hand dominant Cognitive needs: No Hearing needs: No Vision needs: Yes Physical Exam Extrem Other: inc c/d/i Results Reviewed Results Reviewed: I personally reviewed relevant radiographs. Right total shoulder reverse arthroplasty in expected post operative position with no hardware complications or evidence of loosening. Assessment & Plan Assessment & Plan (1) S/p reverse total shoulder arthroplasty: Code(s): Z96.619 - Presence of unspecified artificial shoulder joint Category: Surgical Plan: Doing well Scar massage continue therapeutic exercises f/u 6 weeks Orders: Orders XR shoulder RT min 2V 07/02/24 M25.519 - Pain in unspecified shoulder Coding Level of Care Code Global (94322) Diagnoses S/p reverse total shoulder arthroplasty Z96.619
== END 2024-07-02 13:06 | disposition home or self-care (01) ==
LOC: HO.HOS 12:30
PROVIDERS: PCP Internal Medicine; Visit Provider Orthopaedic Surgery
DX: Z96.619 Presence of unspecified artificial shoulder joint (principal)
CPT/HCPCS: 99024

== ENCOUNTER → 2024-07-02 12:32 | Outpatient (BNV) | payer MEDICARE, SELFPAY | PROVIDERS: Visit Provider Radiology Diagnostic Radiology | DX: Z96.611 Presence of right artificial shoulder joint (principal) | CPT/HCPCS: 73030 ==

== ENCOUNTER 2024-08-13 12:21 | Outpatient (REF) | payer MEDICARE, SELFPAY ==
--- NOTE | ~2024-08-13 | XR_ITS ---
EXAMINATION: XR SHOULDER, RIGHT CLINICAL INFORMATION: M25.519 - Pain in unspecified shoulder COMPARISON: 06/11/2024, 07/02/2024. TECHNIQUE: AP external rotation, Grashey, scapular Y, and axillary views of the right shoulder. FINDINGS: There is been a total reverse right shoulder arthroplasty. There is lucency at the margins of both the glenoid prosthesis and the humeral prosthesis. Unknown if this is expected/normal postoperative appearance, although has unchanged appearance from immediate postoperative radiographs 06/11/2024. Otherwise, no periscrew lucencies, or lucency surrounding the stem of the humeral component. No fracture or bone lesion. There is a surgical anchor in the lateral acromion. There is extensive spurring of the AC joint. Remainder of the osseous and soft tissue structures appear normal. XR/XR shoulder RT min 2V IMPRESSION: 1. Right shoulder reverse arthroplasty, with well-defined lucencies at the bony prosthetic interfaces of both the glenoid and humeral components. This has a stable appearance from the immediate postoperative radiograph 06/11/2024, and is likely an expected postoperative appearance. There is no additional evidence of loosening of the prostheses or periprosthetic fracture. 2. There is a surgical anchor in the lateral acromion. 3. There is abundant spurring of the AC joint. Electronically signed by: Ignacio Vernon MD 08/14/2024 10:23 AM EDT
== END 2024-08-13 12:22 | disposition home or self-care (01) ==
LOC: HO.HOSX 12:21
PROVIDERS: Visit Provider Orthopaedic Surgery
DX: M25.511 Pain in right shoulder (principal); Z96.619 Presence of unspecified artificial shoulder joint
CPT/HCPCS: 73030; 99212

== ENCOUNTER 2024-08-13 12:31 | Outpatient (AMB) | payer MEDICARE, SELFPAY ==
--- NOTE | 2024-08-13 12:42 | MHC.OFFVIS ---
Intake Visit Reasons: PO: R TSA w/NE 05/27/24 Intake Note: Rauhl is a 78 year old male who presents today for a post operative appointment about 2 months s/p Right TSA 05/27/24. Patient reports that he is doing well with little to no pain but he is still having limited ROM despite continued PT Allergies pineapple Allergy (Verified 08/13/24 12:45) Unknown caffeine Adverse Reaction (Intermediate, Verified 08/13/24 12:45) Joint Pain tomato Adverse Reaction (Intermediate, Verified 08/13/24 12:45) Stomach Upset HPI HPI PO: R TSA w/NE 05/27/24: Details: Three months status post right reverse total shoulder arthroplasty doing well. He can just get his hand to the back of his head. He has no pain. [facility] Medical History Hiatal hernia Arthritis Impaired fasting glucose Patellofemoral arthralgia of both knees Dupuytren's contracture of right hand Surgical History History of esophagogastroduodenoscopy (EGD) H/O colonoscopy Hx of cataract surgery H/O knee surgery History of rotator cuff surgery Family History Brother Mental health disorder Social History Household Members Other:: & grandson Housing: House Are you a primary plant care worker to a significant other at home: No Do you presently have visiting nurse or other home services: No Patient Tobacco Use Status: Never used Tobacco e-Cigarette/Vaping Use: Never Used Second Hand Smoke Exposure: No Advance Directives Date on File: 08/29/23 service: No Current occupational status: retired Current occupation: right hand dominant Cognitive needs: No Hearing needs: No Vision needs: Yes Physical Exam Extrem Other: Incision clean dry and intact Results Reviewed Results Reviewed: I personally reviewed relevant radiographs. Right reverse total shoulder arthroplasty in expected post operative position with no hardware complications or evidence of loosening Assessment & Plan Assessment & Plan (1) S/p reverse total shoulder arthroplasty: Code(s): Z96.619 - Presence of unspecified artificial shoulder joint Category: Surgical Plan: Doing well status post right shoulder replacement. He has difficulty with abduction past 80 degrees but pain-free production below. I recommend continue [id number] exercises. He is leaving the country for couple of months and I would like to see him back in 3 months' time. Orders: Orders XR shoulder RT min 2V Today M25.519 - Pain in unspecified shoulder Coding Level of Care Code Global (53596) Diagnoses S/p reverse total shoulder arthroplasty Z96.619
== END 2024-08-13 12:55 | disposition home or self-care (01) ==
LOC: HO.HOS 12:32
PROVIDERS: Visit Provider Orthopaedic Surgery
DX: Z96.619 Presence of unspecified artificial shoulder joint (principal)
CPT/HCPCS: 99024

== ENCOUNTER → 2024-08-13 12:34 | Outpatient (BNV) | payer MEDICARE, SELFPAY | PROVIDERS: Visit Provider Radiology Diagnostic Radiology | DX: M25.519 Pain in unspecified shoulder (principal); Z96.611 Presence of right artificial shoulder joint | CPT/HCPCS: 73030 ==

== ENCOUNTER 2024-11-23 10:42 | Outpatient (REF) | payer MEDICARE, SELFPAY ==
--- NOTE | ~2024-11-23 | XR_ITS ---
EXAMINATION: XR SHOULDER, RIGHT CLINICAL INFORMATION: M25.519 - Pain in unspecified shoulder COMPARISON: August 13, 2024. TECHNIQUE: AP and Y-view projections of the right shoulder. FINDINGS: There is a metallic prosthesis with an glenoid foci and proximal humerus components. No gross malalignment. There is loosening in both glenohumeral osseous component. There is a metallic or radiopaque screw and the acromion region. XR/XR shoulder RT min 2V IMPRESSION: Loosening surrounding the glenoid and the humeral components of the right glenohumeral prosthesis Electronically signed by: Jay Alvares MD 11/23/2024 12:27 PM EDT
== END 2024-11-23 10:43 | disposition home or self-care (01) ==
LOC: HO.HOSX 10:42
PROVIDERS: Visit Provider Orthopaedic Surgery
DX: M25.511 Pain in right shoulder (principal); Z96.611 Presence of right artificial shoulder joint
CPT/HCPCS: 73030; 99212

== ENCOUNTER 2024-11-23 10:50 | Outpatient (AMB) | payer MEDICARE, SELFPAY ==
--- NOTE | 2024-11-23 11:27 | MHC.OFFVIS ---
Intake Visit Reasons: OV-R TSA w/NE 05/27/24-follow up 3 months Intake Note: Rahul is a 78 year old right hand dominant male who presents today for a follow up of his right shoulder about 6 months s/p Right TSA 05/27/24. At his last visit he was instructed to work on ROM as he struggled with abduction over 80 degrees. States he is doping well and has been improving but very slowly. He continues to work on his ROM and has mild soreness. Allergies pineapple Allergy (Verified 11/23/24 11:30) Unknown caffeine Adverse Reaction (Intermediate, Verified 11/23/24 11:30) Joint Pain tomato Adverse Reaction (Intermediate, Verified 11/23/24 11:30) Stomach Upset HPI HPI OV-R TSA w/NE 05/27/24-follow up 3 months: Details: Six months status post right rTSA. He is doing well. He is still has slight loss of terminal combined abduction and difficulty fully internally rotating to get his hand to his lumbar spine. Otherwise he has no pain complaints and he is happy with the results of the surgery. [facility] Medical History Hiatal hernia Arthritis Impaired fasting glucose Patellofemoral arthralgia of both knees Dupuytren's contracture of right hand Surgical History History of esophagogastroduodenoscopy (EGD) H/O colonoscopy Hx of cataract surgery H/O knee surgery History of rotator cuff surgery Family History Brother Mental health disorder Social History Household Members Other:: & grandson Housing: House Are you a primary health care specialist to a significant other at home: No Do you presently have visiting nurse or other home services: No Patient Tobacco Use Status: Never used Tobacco e-Cigarette/Vaping Use: Never Used Second Hand Smoke Exposure: No Advance Directives Date on File: 08/29/23 service: No Current occupational status: retired Current occupation: right hand dominant Cognitive needs: No Hearing needs: No Vision needs: Yes Physical Exam Extrem Other: Right shoulder with well-healed incision. 10 degrees of external rotation internal rotation to hip pocket. Abduction to 80 degrees and combined to 130 with forward flexion to 120. Neurovascularly intact right upper extremity Results Reviewed Results Reviewed: I personally reviewed relevant radiographs. Right reverse total shoulder arthroplasty in expected post operative position with no hardware complications or evidence of loosening Assessment & Plan Assessment & Plan (1) Status post reverse total arthroplasty of right shoulder: Code(s): Z96.611 - Presence of right artificial shoulder joint Category: Surgical Plan: Among well as doing well status post rTSA run the right. Continue to avoid any lifting over 10 lb. Continue home exercise program. He can follow up to see me in 6 months. Orders: Orders XR shoulder RT min 2V Today M25.519 - Pain in unspecified shoulder Coding Level of Care Code Est Pt Level 3 (93771) Diagnoses Status post reverse total arthroplasty of right shoulder Z96.611
== END 2024-11-23 11:34 | disposition home or self-care (01) ==
LOC: HO.HOS 10:51
PROVIDERS: Visit Provider Orthopaedic Surgery
DX: Z47.89 Encounter for other orthopedic aftercare (principal); Z96.611 Presence of right artificial shoulder joint
CPT/HCPCS: 99213

== ENCOUNTER → 2024-11-23 11:04 | Outpatient (BNV) | payer MEDICARE, SELFPAY | PROVIDERS: Visit Provider Radiology Diagnostic Radiology | DX: M25.511 Pain in right shoulder (principal) | CPT/HCPCS: 73030 ==

== ENCOUNTER 2024-12-30 12:27 | Outpatient (AMB) | payer MEDICARE, SELFPAY ==
--- NOTE | 2024-12-30 12:33 | MHC.PC.OV ---
Vital Signs 12/30/24 12:38 Height 5 ft 5 in Weight 189 lb BMI 31.4 BP 102/64 Blood Pressure Location Lt brachial Position Sitting Respiration 16 Pulse 74 Pulse Source Pulse Oximeter Temp 98.2 F Temp Source Oral Pulse Oximetry (%) 97 Oxygen Delivery Method Room Air Intake Visit Reasons: PE Intake Note: Pt is here today for his PE Allergies pineapple Allergy (Verified 12/30/24 13:02) Unknown caffeine Adverse Reaction (Intermediate, Verified 12/30/24 13:02) Joint Pain tomato Adverse Reaction (Intermediate, Verified 12/30/24 13:02) Stomach Upset Medication List - Last Reconciled 12/30/24 by Rosy Ulloa MD acetaminophen 650 mg (2 x 325 mg) PO Q6H PRN 30 days celecoxib 200 mg PO BID 30 days docusate sodium 100 mg PO BID 14 days multivitamin 1 tab PO DAILY oxycodone 5 mg PO Q4H PRN 7 days Tobacco use date assessed: 12/30/24 Fall risk assessment: 1 Fall in past year Last assessed Fall Risk: 12/30/24 Dental Screening Dental Screen Date: 12/30/24 Did you have a dental visit in the last 12 months?: Yes Did you have a dental problem in the last 6 months where you did not have access to dental care?: No Was dental information given to patient?: Patient has dentist HPI PE HPI Details 79-year-old male with history of osteoarthritis with rotator cuff arthropathy for right shoulder status post arthroplasty, has impaired fasting glucose here today for his physical exam. Has been feeling well with no complaints except for occasional stiffness in decreased range of motion in his right shoulder joint status post arthroplasty, completed physical therapy [facility] Medical History Hiatal hernia Arthritis Impaired fasting glucose Patellofemoral arthralgia of both knees Dupuytren's contracture of right hand Surgical History History of esophagogastroduodenoscopy (EGD) H/O colonoscopy Hx of cataract surgery H/O knee surgery History of rotator cuff surgery Family History Brother Mental health disorder Social History Household Members Other:: & grandson Housing: House Are you a primary acute care certified nursing assistant to a significant other at home: No Do you presently have visiting nurse or other home services: No Patient Tobacco Use Status: Never used Tobacco e-Cigarette/Vaping Use: Never Used Second Hand Smoke Exposure: No Advance Directives Date on File: 08/29/23 service: No Current occupational status: retired Current occupation: right hand dominant Cognitive needs: No Hearing needs: No Vision needs: Yes Questionnaire PHQ-9 Over the last 2 weeks, how often have you been bothered by any of the following problems? 1. Little interest or pleasure in doing things: not at all Depression Screening Interpretation: Negative Depression Screening Done: Yes 04466 - PHQ-9 Billing: Yes Source: Developed by Drs. Javan Patel, Marquita Torres, Jewel Wood and colleagues, with an educational liza from [employer]. Thrive Questionnaire Date Thrive assessed: 12/24/24 I am a: Patient What is your living situation today?: I have a steady place to live Within the past 12 months, did the food you bought not last and you didn't have the money to get more?: Never true Within the past 12 months, did you worry whether your food would run out before you got money to buy more?: Never true Do you have trouble paying for medicines?: No Do you have trouble getting transportation to medical appointments?: No Do you have trouble paying your heating and electricity bill?: No Do you have trouble taking care of your child, family member or friend?: No Do you have trouble with day-to-day activities such as bathing, preparing meals, shopping, managing finances, etc.?: No Are you currently unemployed and looking for a job?: No Are you interested in more education?: No Please select the resources that you would like help with: None Currently or been in a relationship where the following occur: I choose not to answer THRIVE Score: 0 AUDIT C Alcohol Use Questionnaire (AUDIT-C) 1. How often do you have a drink containing alcohol?: 4 or more times a week 2. How many drinks containing alcohol do you have on a typical day when you are drinking?: 1 or 2 3. How often do you have six or more drinks on one occasion?: Never Total Score: 4 KLAUDIA-7 AMB Questionnaire KLAUDIA-7 Date KLAUDIA - 7 assessed: 08/29/23 Feeling nervous, anxious, or on edge: 0 = Not at all Not being able to stop or control worryin = Not at all Worrying too much about different things: 1 = Several days Trouble relaxin = Several days Being so restless that it is hard to sit still: 0 = Not at all Becoming easily annoyed or irritable: 0 = Not at all Feeling afraid as if something awful might happen: 0 = Not at all Total KLAUDIA-7 score (0-4 normal; 5-9 mild; 10-14 moderate; 15-21 severe): 2 Source: Developed by Drs. Javan Patel, Marquita Torres, Jewel Wood and colleagues, with an educational liza from [employer]. KLAUDIA-7 Assessment Billing KLAUDIA-7 Assessment Tool: KLAUDIA-7 Assessment 98203 Review of Systems Const Reports no additional complaints Eyes Details: sees wheat cleaner in [place], had cataract surgery, no glaucoma ENT Details: Gets dental cleaning every 6 Reports no additional complaints and Reports Normal hearing present Card Reports no additional complaints Resp Reports no additional complaints GI Reports no additional complaints Reports no additional complaints Musc Reports as per HPI Skin/Breast Denies lesions, Denies rash, Denies skin pain and Denies skin swelling Neuro Reports no additional complaints, Reports Normal hearing present and Denies Sensory deficit (Neuro) Psych Reports no additional complaints Endo Reports no additional complaints Spencer/Lymph Reports no additional complaints Aller/Immun Reports no additional complaints Physical exam (Primary Care) Vital Signs: Last Vital Signs Temp 98.2 F 12/30/24 12:38 Pulse 74 12/30/24 12:38 Resp 16 12/30/24 12:38 BP 102/64 12/30/24 12:38 Pulse Ox 97 12/30/24 12:38 Oxygen Delivery Method Room Air 12/30/24 12:38 BMI result Body Mass Index 31.4 Tobacco/Smoking Status: Tobacco use Status Tobacco use date assessed 12/30/24 12/30/24 12:36 Patient Tobacco Use Status Never used Tobacco 12/30/24 12:36 e-Cigarette/Vaping Use Never Used 12/30/24 12:36 Depression Screening Interpretation: Negative Thrive Assessment: Date of Thrive Assessment Date Thrive assessed 12/24/24 12/30/24 12:36 Currently or been in a relationship where the following occur: I choose not to answer Const General: comfortable Nutritional Appearance: obese Orientation/consciousness: patient oriented x3 HENMT Ears: hearing grossly normal bilaterally, external ears normal and TM's normal bilaterally General nose exam: Normal external nose present and Normal nares present Face and sinus: Yes face symmetric Mouth: Normal oral and palatal mucosa present and moist mucous membranes Eyes Other: Wears bifocal lenses General: appearance normal, both eyes and all related structures Neck Neck: Yes full ROM, Yes no lymphadenopathy and Yes supple Thyroid: Thyroid normal Resp Effort & Inspection: normal respiratory effort and able to speak in complete sentences Auscultation: clear to auscultation bilaterally Cardio Other: S1 S2 present , regular rate and rhythm Bruits: no abdominal aortic bruits GI Palpation (GI): No Abdominal aortic bruit present, Soft to palpation, nontender, no guarding and no masses Auscultation: normal bowel sounds General: Yes no CVA tenderness Male General Exam: Yes normal external exam Back/Spine/Pelvis Back: no CVA tenderness and No back tenderness Skin General skin exam: no rashes or lesions noted Neuro General: patient oriented x3, gait normal, moves all extremities and no focal motor deficits Cranial nerves: Yes Normal hearing present Sensory Exam: No Sensory deficit (Neuro) Extrem Other: Difficulty abducting more than 90 degrees right arm due to stiffness in right shoulder joint General: Yes no joint enlargement, Yes no pedal edema, Yes no calf tenderness and Yes normal gait Psych Appearance: grossly normal Mental Status: mental status grossly normal Speech and movement: Normal speech and movement present Affect: normal affect Results Reviewed Results Reviewed: Name: Rahul Hope Age/Sex: 78/M : 1945 Unit#: [id number] Attend Dr: Art Nguyễn MD Re05/27/24 [place] [facility] [place] [facility] Disch: SPEC : [id number] [place]: 05/28/24 STATUS: COMP REQ : [id number] RECD: 05/28/[address]: Adriana Santiago PA-C COMP: 05/28/24 ENTERED: 05/28/24-[address]: Art Nguyễn MD Physician,Unknown ORDERED: Met Prof Fast Test Result Flag Reference Sodium 138 135-145 mmol/L Potassium 4.1 3.3-5.1 mmol/L CL 104 96-108 mmol/L CO2 26 22-29 mmol/L Gap 12 12-20 BUN 16 9-16 mg/dL Creat 0.71 0.5-1.4 mg/dL Estimated CrCl 87.6 eGFR (calculated from the MDRD study equation) and eCrCl (calculated from the Cockcroft-Gault equation) are based on different parameters and may not yield comparable results. If eCrCl result is absurd, please check patient's height/weight. eGFR > 60 Chronic Kidney Disease: Estimated GFR < 60 mL/min/1.73m2 Severe Kidney Disease: Estimated GFR < 15 mL/min/1.73m2 FBS 102 H 60-99 mg/dL A fasting glucose from 100-125 mg/dl is considered impaired (pre-diabetes). CA 8.5 8.4-10.2 mg/dL Name: Rahul Hope Age/Sex: 77/M : 1945 Unit#: [id number] Attend Dr: Rosy Ulloa MD Re08/30/23 Status: DEP REF Location: [facility] Disch: SPEC : [id number] [place]: 08/30/23 STATUS: COMP REQ : [id number] RECD: 08/30/23-[address]: Rosy Ulloa MD COMP: 08/30/231127 ENTERED: 08/30/23 [facility] DR: ORDERED: Met Prof Fast, AST, ALT, Lipid Panel, Vitamin D 25-OH Test Result Flag Reference Sodium 139 135-145 mmol/L Potassium 4.1 3.3-5.1 mmol/L CL 106 96-108 mmol/L CO2 24 22-29 mmol/L Gap 13 12-20 BUN 20 H 9-16 mg/dL Creat 0.74 0.5-1.4 mg/dL EGFR > 60 NOTE: For -[place]yr[place] individuals, multiply the result by 1.210. Chronic Kidney Disease: Estimated GFR < 60 mL/min/1.73m2 Severe Kidney Disease: Estimated GFR < 15 mL/min/1.73m2 FBS 101 H 60-99 mg/dL A fasting glucose from 100-125 mg/dl is considered impaired (pre-diabetes). CA 8.9 8.4-10.2 mg/dL AST (GOT) 21 5-37 U/L ALT (GPT) 20 0-40 U/L Triglyceride 111 <150 mg/dL Desirable Triglyceride: less than 150 mg/dL Borderline High Triglyceride 150-199 mg/dL High Triglyceride: 200-499 mg/dL Very High Triglyceride: greater than or equal to 5OO mg/dL Cholesterol 172 <200 mg/dL Desirable Cholesterol: less than 200 mg/dL Borderline High Cholesterol: 200-239 mg/dL High Cholesterol: greater than 239 mg/dL LDL Calculated 101 H <100 mg/dL Desirable LDL: less than 100 mg/dL Near Optimal/Above Optimal LDL: 110-129 mg/dL Borderline High LDL: 130-159 mg/dL High LDL: 160-189 mg/dL Very High LDL: greater than or equal to 190 mg/dL HDL 49 >40 mg/dL Desirable HDL: greater than 40 mg/dL Note: This HDL assay may give artificially low results in patients with liver disease. Vit D 25-OH Tot 44.8 >30 ng/mL Health Based Reference Values* < 20 ng/mL Deficient 20-30 ng/mL Insufficient > 30 ng/mL Sufficient Coding Level of Care Code Est Pt Prev Care >65y(42163) Diagnoses Annual visit for general adult medical examination with abnormal findings Z00.01 Impaired fasting glucose R73.01 Rotator cuff arthropathy of right shoulder M12.811 Additional Codes KLAUDIA-7 Assessment Billing - KLAUDIA-7 Assessment Tool: KLAUDIA-7 Assessment 14797 ([id number]) PHQ-9 - 91686 - PHQ-9 Billing: Yes ([id number]) Assessment & Plan Assessment & Plan (1) Annual visit for general adult medical examination with abnormal findings: Code(s): Z00.01 - Encounter for general adult medical examination with abnormal findings Plan: Recent fasting lab results reviewed with patient with normal lipids and mildly elevated fasting glucose. Continue dental visit every 6 months and regular eye exams, at least every 2 years, sees [place] [facility]. Take adequate calcium in diet and vitamin-D 3 at 2000 IU per cap once a day, in addition to weight-bearing exercises to help maintain good muscle tone and weight control. Has had a colonoscopy more than 10 years ago at [facility],, does not want to get further screenings. Has had COVID vaccines in the past but does not want to get updated booster shot or flu shots. He is up-to-date with pneumonia vaccine, Shingrix vaccine. (2) Impaired fasting glucose: Code(s): R73.01 - Impaired fasting glucose Category: Medical Plan: Your previous fasting blood sugars were elevated above 100 mg/dL. Impaired glucose metabolism increases the risk for developing diabetes mellitus type 2, as well as heart attack and stroke later on. Lifestyle changes that promotes weight loss, healthy eating habits, and regular exercise are important, and can prevent the progression to diabetes (3) Rotator cuff arthropathy of right shoulder: Code(s): M12.811 - Other specific arthropathies, not elsewhere classified, right shoulder Category: Medical Plan: Status post arthroplasty right shoulder, and finished therapy, continue doing exercises taught at physical therapy, takes celecoxib as needed for pain
[2024-12-30 12:38] VITALS: BP 102/64; PULSE 74; RESP 16; TEMP 36.8; O2SAT 97; BMI 31.4
== END 2024-12-30 13:19 | disposition home or self-care (01) ==
LOC: HO.HMCC 12:28
PROVIDERS: Visit Provider Internal Medicine
DX: Z00.01 Encounter for general adult medical examination with abnormal findings (principal); R73.01 Impaired fasting glucose; M12.811 Other specific arthropathies, not elsewhere classified, right shoulder

== ENCOUNTER → 2024-12-30 12:27 | Outpatient (BNVA) | payer MEDICARE, SELFPAY | PROVIDERS: Visit Provider Internal Medicine | DX: Z00.01 Encounter for general adult medical examination with abnormal findings (principal); R73.01 Impaired fasting glucose; M12.811 Other specific arthropathies, not elsewhere classified, right shoulder | CPT/HCPCS: 96127; 99397 ==

== ENCOUNTER 2025-01-01 06:36 | Outpatient (REF) | payer MEDICARE, SELFPAY ==
[2025-01-01 10:57] LABS: Hemoglobin A1C 138.7930 umol/L; Total Hemoglobin (HGBA1C) 3655.5564 umol/L
[2025-01-01 11:16] LABS: Alanine Aminotransferase 19 U/L (0-40); Anion Gap 7 (12-20); Aspartate Amino Transferase 27 U/L (5-37); Blood Urea Nitrogen 15 mg/dL (9-16); Calcium 9.0 mg/dL (8.4-10.2); Carbon Dioxide 28 mmol/L (22-29); Chloride 107 mmol/L (96-108); Cholesterol 163 mg/dL (<200); Estimated Glomerular Filt Rate > 60; HDL Cholesterol 48 mg/dL (>40); Potassium 4.2 mmol/L (3.3-5.1); Sodium 138 mmol/L (135-145); Triglycerides 90 mg/dL (<150)
[2025-01-01 11:24] LABS: PSA,Total (Free>4and<10) 2.20 ng/mL (0.00-4.00)
== END 2025-01-01 06:37 | disposition home or self-care (01) ==
LOC: HO.HMGCLDS 06:36
PROVIDERS: PCP Internal Medicine; Visit Provider Internal Medicine
DX: R73.01 Impaired fasting glucose (principal); Z13.220 Encounter for screening for lipoid disorders; Z12.5 Encounter for screening for malignant neoplasm of prostate; Z13.6 Encounter for screening for cardiovascular disorders
CPT/HCPCS: 36415; 80048; 80061; 82306; 83036; 84153; 84450; 84460

== ENCOUNTER 2025-01-19 09:43 | Outpatient (REF) | payer MEDICARE, SELFPAY ==
--- NOTE | ~2025-01-19 | XR_ITS ---
EXAMINATION: XR SHOULDER, RIGHT CLINICAL INFORMATION: M25.519 - Pain in unspecified shoulder COMPARISON: 11/23/2024, 06/11/2024, 07/02/2024. TECHNIQUE: Three views of the right shoulder. FINDINGS: There has been a total reverse right shoulder arthroplasty. There is lucency at the margins of both the glenoid prosthesis and the humeral prosthesis. Unknown if this is expected/normal postoperative appearance, although has unchanged appearance from immediate postoperative radiographs 06/11/2024, and radiographs 11/23/2024. Otherwise, no periscrew lucencies, or lucency surrounding the stem of the humeral component. No fracture or bone lesion. There is a surgical anchor in the lateral acromion. There is extensive spurring of the AC joint. Remainder of the osseous and soft tissue structures appear normal. XR/XR shoulder RT min 2V IMPRESSION: 1. Right shoulder reverse arthroplasty, with well-defined lucencies at the bony prosthetic interfaces of both the glenoid and humeral components. This has a stable appearance from the immediate postoperative radiograph 06/11/2024, as well as 11/23/2024. There has been no significant interval change on today's radiograph. 2. There is a surgical anchor in the lateral acromion. 3. There is stable abundant spurring of the AC joint. Electronically signed by: Ignacio Vernon MD 01/19/2025 10:38 AM EDT
[2025-01-19 12:02] LABS: Hematocrit 41.3 % (42.0-52.0); Hemoglobin 13.9 g/dl (14.0-18.0); Mean Corpuscular HGB Conc 33.7 g/dl (31.0-36.0); Mean Corpuscular Hemoglobin 30.8 pg (27.0-33.0); Mean Corpuscular Volume 91.6 fL (80.0-98.0); NRBC Abs Auto 0.000 X10*3/uL (0.0-0.012); NRBC Pct Auto 0.0 /100WBC (0.0-0.2); Platelet Count 228 X10*3/uL (160-400); Red Blood Count 4.51 X10*6/uL (4.60-5.80); White Blood Count 8.9 X10*3/uL (4.8-10.8)
[2025-01-19 12:27] LABS: Anion Gap 11 (12-20); Blood Urea Nitrogen 19 mg/dL (9-16); Calcium 8.9 mg/dL (8.4-10.2); Carbon Dioxide 28 mmol/L (22-29); Chloride 105 mmol/L (96-108); Estimated Glomerular Filt Rate > 60; Potassium 4.4 mmol/L (3.3-5.1); Sodium 140 mmol/L (135-145)
== END 2025-01-19 09:44 | disposition home or self-care (01) ==
LOC: HO.HOSX 09:43
PROVIDERS: Visit Provider Physician Assistant
DX: Z01.818 Encounter for other preprocedural examination (principal); Z01.812 Encounter for preprocedural laboratory examination; Z96.611 Presence of right artificial shoulder joint; M25.511 Pain in right shoulder
CPT/HCPCS: 36415; 73030; 80048; 85027; 85652; 86141; 99212

== ENCOUNTER 2025-01-19 10:24 | Outpatient (AMB) | payer MEDICARE, SELFPAY ==
--- NOTE | 2025-01-19 10:32 | MHC.OFFVIS ---
Intake Visit Reasons: OV- Increased pain/ possible infection Intake Note: Rahul is a 79 year old male who presents today for a evaluation of his right total shoulder arthroplasty done on 05/27/[address] Nguyễn. Patient noticed a lump on his shoulder yesterday and it felt warm to touch. Allergies pineapple Allergy (Verified 01/19/25 10:41) Unknown caffeine Adverse Reaction (Intermediate, Verified 01/19/25 10:41) Joint Pain tomato Adverse Reaction (Intermediate, Verified 01/19/25 10:41) Stomach Upset HPI HPI OV- Increased pain/ possible infection: Details: Mr. Hope is a 79-year-old male who presents to the office today status post right reverse total shoulder arthroplasty performed on 05/27/[address] Nguyễn. He reports over the past 2 days he has noticed a lump that has been forming over the prior incision site with a slight increase in pain. He denies any drainage from the lump. He denies any recent illness or infection. He denies any recent dental procedures. [facility] Medical History Hiatal hernia Arthritis Impaired fasting glucose Patellofemoral arthralgia of both knees Dupuytren's contracture of right hand Surgical History History of esophagogastroduodenoscopy (EGD) H/O colonoscopy Hx of cataract surgery H/O knee surgery History of rotator cuff surgery Family History Brother Mental health disorder Social History Household Members Other:: & grandson Housing: House Are you a primary care director to a significant other at home: No Do you presently have visiting nurse or other home services: No Patient Tobacco Use Status: Never used Tobacco e-Cigarette/Vaping Use: Never Used Second Hand Smoke Exposure: No Advance Directives Date on File: 08/29/23 service: No Current occupational status: retired Current occupation: right hand dominant Cognitive needs: No Hearing needs: No Vision needs: Yes Review of Systems Const All systems reviewed & are unremarkable except as noted in HPI and below Physical Exam Const General: cooperative, healthy appearing and no acute distress Resp Effort & Inspection: normal respiratory effort and able to speak in complete sentences Extrem Other: Right shoulder 90 degrees forward flexion abduction. Patient has a dime-sized area of fluctuance over the prior arthroplasty incision site. There is mild erythema surrounding the area. No active drainage. NVI. Psych Appearance: grossly normal Mental Status: mental status grossly normal Attitude: cooperative Assessment & Plan Assessment & Plan (1) Status post reverse total arthroplasty of right shoulder: Code(s): Z96.611 - Presence of right artificial shoulder joint Category: Surgical Plan Mr. Hpoe is a 79-year-old male who presents to the office today status post right reverse total shoulder arthroplasty performed on 05/27/[address] Nguyễn. He reports over the past 2 days he has noticed a lump that has been forming over the prior incision site with a slight increase in pain. He denies any drainage from the lump. He denies any recent illness or infection. He denies any recent dental procedures. While in the office today, I have recommended that we obtain a CRP, sed rate and ESR for further evaluation of inflammatory markers. X-rays were obtained in the office today which I have appreciated a question of hardware loosening. I did discuss the case with Dr. Nguyễn who is going to see the patient on 01/21/2025 for further evaluation and possible aspiration of the right shoulder. Therefore, we will hold on antibiotics at this time. Should the patient has started to develop fever, chills, inability to move the right upper extremity increase in redness swelling or warmth, severe or worsening pain or general malaise he should contact our office immediately and present to the emergency department for evaluation. Orders: Orders CRP High Sensitivity Today Z01.812 - Encounter for preprocedural laboratory examination Erythrocyte Sedimentation Rate Today Z01.812 - Encounter for preprocedural laboratory examination XR shoulder RT min 2V Today M25.519 - Pain in unspecified shoulder Complete Blood Count no Diff Today Z01.818 - Encounter for other preprocedural examination Basic Metabolic Panel Today Z01.818 - Encounter for other preprocedural examination Coding Level of Care Code Est Pt Level 3 (80102) Diagnoses Status post reverse total arthroplasty of right shoulder Z96.611
== END 2025-01-19 11:04 | disposition home or self-care (01) ==
LOC: HO.HOS 10:25
PROVIDERS: PCP Internal Medicine; Visit Provider Physician Assistant
DX: R22.31 Localized swelling, mass and lump, right upper limb (principal); Z96.611 Presence of right artificial shoulder joint
CPT/HCPCS: 99213

== ENCOUNTER → 2025-01-19 10:26 | Outpatient (BNV) | payer MEDICARE, SELFPAY | PROVIDERS: Visit Provider Radiology Diagnostic Radiology | DX: T84.038A Mechanical loosening of other internal prosthetic joint, initial encounter (principal); Z96.611 Presence of right artificial shoulder joint; M89.511 Osteolysis, right shoulder; M25.711 Osteophyte, right shoulder | CPT/HCPCS: 73030 ==

== ENCOUNTER 2025-01-21 10:34 | Outpatient (AMB) | payer MEDICARE, SELFPAY ==
--- NOTE | 2025-01-21 10:36 | MHC.OFFVIS ---
Vital Signs 01/21/25 10:47 Height 5 ft 5 in Weight 189 lb BMI 31.4 Intake Visit Reasons: OV-OV-R TSA w/NE 05/27/24 per NE Intake Note: Rahul is a 79 year old right hand dominant male who presents today for a follow up of his Right shoulder s/p Right TSA 05/27/24. At his last visit with Adriana Santiago patient reported that he noticed a lump on the shoulder, as a result Adriana ordered lab work. He presents today to discuss possible aspiration and review of lab work. Although the lump has increased in size, patient reports that his motion is better. Allergies pineapple Allergy (Verified 01/21/25 10:48) Unknown caffeine Adverse Reaction (Intermediate, Verified 01/21/25 10:48) Joint Pain tomato Adverse Reaction (Intermediate, Verified 01/21/25 10:48) Stomach Upset HPI HPI OV-OV-R TSA w/NE 05/27/24 per NE: Details: Rahul is a 79 year old right hand dominant male who presents today for a follow up of his Right shoulder s/p Right TSA 05/27/24. At his last visit with Adriana Santiago patient reported that he noticed a lump on the shoulder, as a result Adriana ordered lab work. He presents today to discuss possible aspiration and review of lab work. Although the lump has increased in size, patient reports that his motion is better. He has no pain. [facility], [facility] Medical History Hiatal hernia Arthritis Impaired fasting glucose Patellofemoral arthralgia of both knees Dupuytren's contracture of right hand Surgical History History of esophagogastroduodenoscopy (EGD) H/O colonoscopy Hx of cataract surgery H/O knee surgery History of rotator cuff surgery Family History Brother Mental health disorder Social History Household Members Other:: & grandson Housing: House Are you a primary day care aide to a significant other at home: No Do you presently have visiting nurse or other home services: No Patient Tobacco Use Status: Never used Tobacco e-Cigarette/Vaping Use: Never Used Second Hand Smoke Exposure: No Advance Directives Date on File: 08/29/23 service: No Current occupational status: retired Current occupation: right hand dominant Cognitive needs: No Hearing needs: No Vision needs: Yes Physical Exam Vital Signs: BMI result Body Mass Index 31.4 Extrem Other: There is a pustule over anterior incision. Dime sized. Fluctuant with no pain. Minimal surrounding erythema. 10 degrees of external rotation internal rotation to hip pocket. Abduction to 80 degrees and combined to 130 with forward flexion to 120. Scapualr recruitment required to get hand to back of head. Neurovascularly intact right upper extremity Office Procedures Joint Inj/Aspir; Non-Pain Clin Joint Injection/Drain Details: Aspirated anterior incision pustule. Prep: site was prepped using aseptic technique Shoulders, Hips, Knees, Shoulder Injection Large joint 75918: Right Shoulder Coding Procedure code (CPT) selection complete Assessment & Plan Assessment & Plan (1) S/p reverse total shoulder arthroplasty: Code(s): Z96.619 - Presence of unspecified artificial shoulder joint Category: Surgical Plan: question of infection. No pain with shoulder ROM but I aspirated pustule under sterile conditions. Sent to lab. Will order joint aspiration under flouro. Orders: Orders Routine Culture w Gram Stain 01/21/25 Z96.611 - Presence of right artificial shoulder joint Coding Level of Care Code Est Pt Level 4 (60903) Diagnoses S/p reverse total shoulder arthroplasty Z96.619 CPT Codes Shoulders, Hips, Knees, - Shoulder Injection Large joint 35411: Right Shoulder ([id number])
[2025-01-21 10:47] VITALS: BMI 31.4
== END 2025-01-21 11:31 | disposition home or self-care (01) ==
LOC: HO.HOS 10:35
PROVIDERS: Visit Provider Orthopaedic Surgery
DX: R22.31 Localized swelling, mass and lump, right upper limb (principal); Z47.89 Encounter for other orthopedic aftercare; Z96.611 Presence of right artificial shoulder joint
CPT/HCPCS: 20610; 99214

== ENCOUNTER 2025-01-21 10:34 | Outpatient (REF) | payer MEDICARE, SELFPAY | END 2025-01-21 10:35 | disposition home or self-care (01) | LOC: HO.LAB 10:34 | PROVIDERS: Visit Provider Orthopaedic Surgery | DX: Z96.611 Presence of right artificial shoulder joint (principal) | CPT/HCPCS: 20610; 87070; 87073; 87076; 87185; 87205; 99212; J2003 ==

== ENCOUNTER 2025-02-02 12:34 | Outpatient (REF) | payer MEDICARE, SELFPAY ==
--- NOTE | ~2025-02-02 | FL_ITS ---
EXAMINATION: FLUOROSCOPIC-GUIDED ASPIRATION OF THE RIGHT GLENOHUMERAL JOINT. CLINICAL INFORMATION: Presence of artificial shoulder joint. COMPARISON: X-ray 01/19/2025 TECHNIQUE/FINDINGS: The procedure was discussed with the patient. The patient reports that he performed self drainage of the right shoulder 2 weeks ago. There has been fluid oozing/drainage from this region in the last 2 weeks. The procedure, risks, benefits and alternatives were reviewed with the patient and written informed consent was obtained after all questions were answered. Right total shoulder arthroplasty present. A 20-gauge needle was advanced into the right glenohumeral joint utilizing local anesthesia, sterile technique and intermittent fluoroscopic guidance. The needle was repositioned in different locations about the joint .There was no return of fluid despite repositioning the needle multiple times. The small amount of contrast was subsequently injected to confirm intra-articular positioning of the needle. There are no immediate complications. FLUOROSCOPIC TIME: 37 seconds DLP: 20.45 mgy Images: 5 FL/FL Guided Asp Inj Major Jt RT IMPRESSION: Status post right total shoulder hip arthroplasty. Fluoroscopic guided aspiration of the right glenohumeral joint without complication. There is no fluid available for aspiration. Of note, patient reports performing's self drainage of the right shoulder 2 weeks ago. Patient reports fluid oozing/draining from this region.. Recommend follow-up and evaluation with the orthopedic surgeon. Electronically signed by: Ghulam Pfeiffer MD 02/02/2025 04:58 PM EDT
== END 2025-02-02 12:35 | disposition home or self-care (01) ==
LOC: HO.XRAY 12:34
PROVIDERS: Visit Provider Orthopaedic Surgery
DX: Z96.619 Presence of unspecified artificial shoulder joint (principal)
CPT/HCPCS: 20610; 77002

== ENCOUNTER → 2025-02-02 12:37 | Outpatient (BNV) | payer MEDICARE, SELFPAY | PROVIDERS: Visit Provider Radiology Diagnostic Ultrasound | DX: Z96.611 Presence of right artificial shoulder joint (principal) | CPT/HCPCS: 20610; 77002 ==

== ENCOUNTER 2025-02-11 10:35 | Outpatient (AMB) | payer MEDICARE, SELFPAY ==
--- NOTE | 2025-02-11 10:38 | A.OFFVIS_ITS ---
Intake Visit Reasons: OV - discuss aspiration results Intake Note: Rahul is a 79 year old right hand dominant male who presents today for a follow up of his Right shoulder s/p Right TSA 05/27/24. At his last visit we aspirated the pustule on the anterior aspect of the right shoulder, and an aspiration under fluoro guidance was done on 02/02/25. Patient reports that the area has been leaking a clear yellow tinted fluid. he has been covering with gauze/cotton and tape Specimen was positive for Staph Aureus. Allergies pineapple Allergy (Verified 01/21/25 10:48) Unknown caffeine Adverse Reaction (Intermediate, Verified 01/21/25 10:48) Joint Pain tomato Adverse Reaction (Intermediate, Verified 01/21/25 10:48) Stomach Upset HPI HPI OV - discuss aspiration results: Details: Rahul is a 79 year old right hand dominant male who presents today for a follow up of his Right shoulder s/p Right TSA 05/27/24. At his last visit we aspirated the pustule on the anterior aspect of the right shoulder, and an aspiration under fluoro guidance was done on 02/02/25. Patient reports that the area has been leaking a clear yellow tinted fluid. He has been covering with gauze/cotton and tape. Cultures were+ for C. Acnes. Today he states he feels well. PFSH Medical History Hiatal hernia Arthritis Impaired fasting glucose Patellofemoral arthralgia of both knees Dupuytren's contracture of right hand Surgical History History of esophagogastroduodenoscopy (EGD) H/O colonoscopy Hx of cataract surgery H/O knee surgery History of rotator cuff surgery Family History Brother Mental health disorder Social History Household Members Other:: & grandson Housing: House Are you a primary child daycare worker to a significant other at home: No Do you presently have visiting nurse or other home services: No Patient Tobacco Use Status: Never used Tobacco e-Cigarette/Vaping Use: Never Used Second Hand Smoke Exposure: No Advance Directives Date on File: 08/29/23 service: No Current occupational status: retired Current occupation: right hand dominant Cognitive needs: No Hearing needs: No Vision needs: Yes Physical Exam Extrem Other: Small nonhealing pustule over the anterior incision. No pain with shoulder range of motion. Motion unchanged compared to prior. No obvious drainage. Assessment & Plan Assessment & Plan (1) Prosthetic shoulder infection: Code(s): T84.59XA - Infection and inflammatory reaction due to other internal joint prosthesis, initial encounter; Z96.619 - Presence of unspecified artificial shoulder joint Category: Medical Plan: This is a 79-year-old gentleman who had a right shoulder 8 months ago. He was doing very well until he developed swelling and a mass over the incision. This was aspirated in my office ingrowth C acne he has. A glenohumeral joint aspiration with IR was performed but they were unable to obtain any fluid. 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 He is opposed to doing that right now. He states he feels fine and does not want undergo surgery. I explained to him that the bacteria makes a biofilm around the prosthesis and that this will not go away if he does not treated with surgery. He wants to try oral antibiotics. I wrote him prescription of doxycycline I will see him back in a month but I continue to recommend resection arthroplasty with temporary spacer and a course of IV antibiotics followed by reimplantation. He states he feels good and does not want to do this. I will see him back in 1 month. Medications: New doxycycline hyclate 100 mg PO BID 56 caps 0RF 28 days Coding Level of Care Code Est Pt Level 4 (13529) Diagnoses Prosthetic shoulder infection T84.59XA; Z96.619
== END 2025-02-11 10:54 | disposition home or self-care (01) ==
LOC: HO.HOS 10:36
PROVIDERS: Visit Provider Orthopaedic Surgery
DX: T84.59XA Infection and inflammatory reaction due to other internal joint prosthesis, initial encounter (principal); Z96.611 Presence of right artificial shoulder joint
CPT/HCPCS: 99214

== ENCOUNTER → 2025-02-11 10:35 | Outpatient (BNVA) | payer MEDICARE, SELFPAY | PROVIDERS: Visit Provider Orthopaedic Surgery | DX: T84.59XD Infection and inflammatory reaction due to other internal joint prosthesis, subsequent encounter (principal); Z96.611 Presence of right artificial shoulder joint | CPT/HCPCS: 99212 ==

== ENCOUNTER 2025-03-15 10:17 | Outpatient (AMB) | payer MEDICARE, SELFPAY ==
--- NOTE | 2025-03-15 10:19 | MHC.OFFVIS ---
Intake Visit Reasons: OV - Right TSA 05/27/24 - Continued Drainage Intake Note: Rahul is a 79 year old right hand dominant male who presents today for a follow up of his Right shoulder s/p Right TSA 05/27/24. Patient reports that his shoulder has continued to drain fluid. He was given a Refill of Abx. Allergies pineapple Allergy (Verified 01/21/25 10:48) Unknown caffeine Adverse Reaction (Intermediate, Verified 01/21/25 10:48) Joint Pain tomato Adverse Reaction (Intermediate, Verified 01/21/25 10:48) Stomach Upset HPI HPI OV - Right TSA 05/27/24 - Continued Drainage: Details: Rahul is a 79 year old right hand dominant male who presents today for a follow up of his Right shoulder s/p Right TSA 05/27/24. Patient reports that his shoulder has continued to drain fluid. He was given a Refill of Abx. FORMERLY [facility] Medical History Hiatal hernia Arthritis Impaired fasting glucose Patellofemoral arthralgia of both knees Dupuytren's contracture of right hand Surgical History History of esophagogastroduodenoscopy (EGD) H/O colonoscopy Hx of cataract surgery H/O knee surgery History of rotator cuff surgery Family History Brother Mental health disorder Social History Household Members Other:: & grandson Housing: House Are you a primary home care attendant to a significant other at home: No Do you presently have visiting nurse or other home services: No Patient Tobacco Use Status: Never used Tobacco e-Cigarette/Vaping Use: Never Used Second Hand Smoke Exposure: No Advance Directives Date on File: 08/29/23 service: No Current occupational status: retired Current occupation: right hand dominant Cognitive needs: No Hearing needs: No Vision needs: Yes Physical Exam Exam Exam: Small area of draining sinus. No active drainage at this time. No erythema. No pain with shoulder range of motion. Assessment & Plan Assessment & Plan (1) Prosthetic shoulder infection: Code(s): T84.59XA - Infection and inflammatory reaction due to other internal joint prosthesis, initial encounter; Z96.619 - Presence of unspecified artificial shoulder joint Category: Medical Plan: Right shoulder prosthetic infection. Labs ordered and will change to a different antibiotic. He would like to get through the winter holiday but I do believe he will require surgery. He is starting to understand this although he still does not totally get it because of his lack of pain. Explained the process of 2 stage resection arthroplasty. We will see him back in 2 weeks' time Orders: Orders Comprehensive Met. Panel Today T84.59XA - Infection and inflammatory reaction due to other internal joint prosthesis, initial encounter, Z96.619 - Presence of unspecified artificial shoulder joint Coding Level of Care Code Est Pt Level 3 (93897) Diagnoses Prosthetic shoulder infection T84.59XA; Z96.619
== END 2025-03-15 10:33 | disposition home or self-care (01) ==
LOC: HO.HOS 10:18
PROVIDERS: Visit Provider Orthopaedic Surgery
DX: T84.59XA Infection and inflammatory reaction due to other internal joint prosthesis, initial encounter (principal); Z96.611 Presence of right artificial shoulder joint
CPT/HCPCS: 99213

== ENCOUNTER → 2025-03-15 10:17 | Outpatient (BNVA) | payer MEDICARE, SELFPAY | PROVIDERS: Visit Provider Orthopaedic Surgery | DX: T84.59XA Infection and inflammatory reaction due to other internal joint prosthesis, initial encounter (principal); Z96.611 Presence of right artificial shoulder joint | CPT/HCPCS: 99212 ==

== ENCOUNTER 2025-03-15 10:37 | Outpatient (REF) | payer MEDICARE, SELFPAY ==
[2025-03-15 13:52] LABS: Alanine Aminotransferase 25 U/L (0-40); Albumin Level 4.3 g/dL (3.5-5.0); Alkaline Phosphatase 109 U/L (39-117); Anion Gap 11 (12-20); Aspartate Amino Transferase 24 U/L (5-37); Blood Urea Nitrogen 15 mg/dL (9-16); Calcium 9.2 mg/dL (8.4-10.2); Carbon Dioxide 29 mmol/L (22-29); Chloride 106 mmol/L (96-108); Estimated Glomerular Filt Rate > 60; Potassium 4.6 mmol/L (3.3-5.1); Sodium 141 mmol/L (135-145); Total Protein 7.2 g/dL (6.5-8.0)
== END 2025-03-15 10:38 | disposition home or self-care (01) ==
LOC: HO.10HDL 10:37
PROVIDERS: Visit Provider Orthopaedic Surgery
DX: T84.59XA Infection and inflammatory reaction due to other internal joint prosthesis, initial encounter (principal); Z96.619 Presence of unspecified artificial shoulder joint
CPT/HCPCS: 36415; 80053